=== PATIENT | female | born 1970 | race Caucasian/White ===

== ENCOUNTER → 2017-07-31 15:28 | Outpatient (CLI) | payer OTHER, SELFPAY ==
--- NOTE | 2017-07-31 | DI.CT.S_ITS ---
PROCEDURE: CT ABDOMEN PELVIS W CON INDICATIONS: CROHN'S DISEASE TECHNIQUE: After the administration of oral and intravenous contrast, 5 mm thick sections acquired from the diaphragms to the symphysis. 5 mm thick coronal and sagittal reformats were performed. For radiation dose reduction, the following was used: automated exposure control, adjustment of mA and/or kV according to patient size. COMPARISON: Outside Facility, RG, CT PELVIS WITH CONTRAST, 07/13/2016, 0:01. Outside Facility, RG, CT ABDOMEN/PELVIS WITH CONTRAST, 01/07/2016, 19:56. FINDINGS: Image quality: Excellent. ABDOMEN: Lung bases: Lung bases are clear. Heart size is normal. Solid organs: Liver is normal in size and enhancement. Gallbladder appears normal. Biliary system is non-dilated. Pancreas enhances normally. Spleen is normal in size and enhancement. No adrenal nodules. Kidneys are normal in size and enhancement, without hydronephrosis. Peritoneum and bowel: Stomach, small bowel, and colon loops are normal in caliber and wall thickness. The left colon extends inferiorly and transitions into the sigmoid colon, and this portion of the colon is relatively featureless as has been previously the case on the [address] scans from 2015 and 2016. No adjacent pericolonic edema is associated, however, and the posterior half of the sigmoid colon tracking into the rectum appears free of active inflammatory change. No free fluid or air. Nodes and vessels: No retroperitoneal or mesenteric adenopathy. Aorta and inferior vena cava are normal in caliber. Miscellaneous: No ventral hernias. PELVIS: Genitourinary: Bladder wall thickness is normal. The uterus is anteverted, a centrally positioned IUD is incidentally noted. Miscellaneous: No inguinal hernias or adenopathy. No active inflammatory change is seen related to the terminal ileum, or the other components of the large and small bowel included in the pelvic portion of the study. Bones: No suspicious bony lesions. No vertebral body compression fractures. IMPRESSION: The 3 CT scans available for review all show a relatively featureless appearance of the left colon, to approximately the junction of the proximal and middle thirds of the sigmoid colon. This appearance indicates chronic fibrotic change, consistent with long-standing Crohn's disease but without an active inflammatory component at this time. The terminal ileum and other small bowel structures included on the current study appear free of inflammation. No abscess or fistula formation is seen. Incidental note is made of a centrally positioned IUD within the anteverted uterus, previously present. Dictated by: Teddy Celis M.D. on 08/01/2017 at 10:40 Approved by: Teddy Celis M.D. on 08/01/2017 at 10:49
== END ==
PROVIDERS: Visit Provider Internal Medicine Gastroenterology
DX: K50.10 Crohn's disease of large intestine without complications (principal)
CPT/HCPCS: 74177; Q9967

== ENCOUNTER 2018-05-16 23:44 | Emergency (ER) | payer OTHER, SELFPAY ==
[2018-05-16 23:50] VITALS: BP 153/89; PULSE 90; RESP 16; TEMP 36.4; O2SAT 100; BMI 32.9
--- NOTE | 2018-05-17 | ED.EXTPRO ---
HPI - Extremity Problem General Chief complaint: Extremity Problem,Nontraumatic Stated complaint: Left shoulder RA flare up pain Time Seen by Provider: 05/16/18 23:47 Source: patient Mode of arrival: ambulatory Limitations: no limitations History of Present Illness HPI Narrative: 47-year-old female with a history of lupus, Crohn's disease rheumatoid arthritis here for evaluation of which she states is a flare of her rheumatoid arthritis her left shoulder. She states that it started earlier today and has just progressively worsened. She is off of all of her rheumatoid medicine because of the Crohn's disease medicines that she is on. She stated that she also has right wrist pain which is consistent with her rheumatoid arthritis flare. She does have pain medication at home. She stated that she is here for shot of Toradol and steroids. She states the last time this happened that is which she got from an outside facility and then followed up with her primary doctor the next day to have a shot in her left shoulder. That was less than 6 weeks ago. Related Data Previous Rx's Medication Instructions Recorded prednisone 60 mg PO DAILY #35 tab 05/17/18 Allergies Allergy/AdvReac Type Severity Reaction Status Date / Time adalimumab [From Humira] Allergy Verified 05/16/18 23:55 metoclopramide [From Reglan] Allergy Verified 05/16/18 23:55 Penicillins Allergy Verified 05/16/18 23:55 prochlorperazine Allergy Verified 05/16/18 23:55 [From Compazine] Review of Systems Constitutional Denies fever(s) Cardiovascular Denies chest pain and Denies dyspnea Respiratory Denies dyspnea Musculoskeletal Denies tingling Comments: Left shoulder pain, right wrist pain Integumentary/Breasts Denies rash Neurologic Denies tingling Hematologic/Lymphatic Comments: not on blood thinners PFSH Medical History Crohns disease (Acute) Lupus (Acute) Rheumatoid arthritis (Acute) Social History Smoking Status: Unknown if ever smoked Social History Smoking Status: Unknown if ever smoked Exam Initial Vital Signs Initial Vital Signs: Vital Signs Temperature 97.6 F 05/16/18 23:50 Pulse Rate 90 05/16/18 23:50 Respiratory Rate 16 05/16/18 23:50 Blood Pressure 153/89 H 05/16/18 23:50 Pulse Oximetry 100 05/16/18 23:50 Const General: cooperative, well developed, well groomed and No acute distress Orientation: alert, awake and oriented x3 [facility] Head: normal to inspection and normocephalic Resp Effort & Inspection: normal respiratory effort Auscultation: clear to auscultation bilaterally Cardio Rate: regular rate Rhythm: regular rhythm Pulses: radial pulses present on the left Skin Lesions: no lesions Rashes: no rashes Neuro General: alert, awake and oriented x3 Sensory Exam: no sensory deficits noted Extrem Other: patient with limited range of motion of the left shoulder secondary to pain. She was tender to palpation on the left anterior shoulder. Left elbow unremarkable. Left forearm wrist and hand unremarkable. Patient also with tenderness to palpation of the right wrist however she does have movement of this area. Course Orders Ordered: Discontinued Medications Ketorolac Tromethamine (Toradol) 60 mg IM NOW ONE Stop: 05/17/18 00:09 Last Admin: 05/17/18 00:14 Dose: 60 mg Prednisone (Deltasone) 60 mg PO NOW ONE Stop: 05/17/18 00:09 Last Admin: 05/17/18 00:14 Dose: 60 mg Vital Signs - 8 hr 05/16/18 23:50 05/17/18 00:48 Temperature 97.6 F Pulse Rate 90 74 Respiratory Rate 16 16 Blood Pressure 153/89 H Blood Pressure [Left Arm] 97/53 L Pulse Oximetry 100 98 MDM - Extremity (Nontraumatic) MDM Narrative Medical decision making narrative: Patient is afebrile. No trauma so will hold on x-rays for now. Patient states this feels like her flare of rheumatoid arthritis. She was given Toradol and prednisone here in the ER. She asked me to do a steroid injection in her left shoulder however since it has been less than 6 weeks since last steroid injection I informed her that I was uncomfortable doing this. Will send her home with a steroid taper. She has an appointment with her director utilization management next week. She is given return precautions. Patient expressed understanding and agreement with plan. Discharge Plan Departure Patient Disposition: Home Clinical Impression: Rheumatoid arthritis flare Left shoulder pain Qualifiers: Chronicity: acute Qualified Code(s): M25.512 - Pain in left shoulder Instructions: DI for Rheumatoid Arthritis Activity Restrictions/Additional Instructions: you have no restrictions except avoiding activity that makes Your symptoms worse. Take the medication as directed. Contact your primary care doctor for a follow-up. keep all of her scheduled medical appointments. Prescriptions: New prednisone 20 mg tablet 60 mg PO DAILY Qty: 35 RF: 0
[2018-05-17] MEDS: predniSONE 20 MG TABLET 60 MG PO (00:14)
[2018-05-17] MEDS: KETOROLAC 60 MG/2 ML VIAL IM (00:14)
[2018-05-17 00:48] VITALS: BP 97/53; PULSE 74; RESP 16; O2SAT 98
[2018-05-17 01:12] VITALS: BP 107/64; PULSE 72; O2SAT 95
== END 2018-05-17 01:13 | disposition home or self-care (01) ==
PROVIDERS: Emergency Provider Emergency Medicine
DX: M06.9 Rheumatoid arthritis, unspecified (principal); M25.512 Pain in left shoulder
CPT/HCPCS: 96372; 99282; 99283; J1885

== ENCOUNTER → 2021-02-18 12:49 | Outpatient (CLI) | payer SELFPAY | PROVIDERS: Referring Provider Internal Medicine; Visit Provider Internal Medicine | DX: Z23 Encounter for immunization (principal) | CPT/HCPCS: 90471; 90686 ==

== ENCOUNTER → 2021-04-13 12:50 | Outpatient (CLI) | payer OTHER, SELFPAY ==
[2021-04-14 04:36] LABS: Hepatitis B Surf AB Quant 56.5 mIU/mL (Immunity>9.9)
[2021-04-15 07:32] LABS: QuantiFERON Mitogen Value >10.00 IU/mL (.); QuantiFERON Nil Value 0.04 IU/mL (.); QuantiFERON TB Gold Plus Negative (Negative); QuantiFERON TB1 Ag Value 0.04 IU/mL (.); QuantiFERON TB2 Ag Value 0.04 IU/mL (.)
== END ==
PROVIDERS: PCP Family Medicine; Referring Provider Internal Medicine Gastroenterology; Visit Provider Internal Medicine Gastroenterology
DX: K50.813 Crohn's disease of both small and large intestine with fistula (principal)
CPT/HCPCS: 36415; 86480; 86706

== ENCOUNTER → 2021-04-14 07:49 | Outpatient (CLI) | payer OTHER, SELFPAY ==
[2021-04-16 18:36] LABS: Calprotectin, Stool 727 ug/g (0-120)
== END ==
PROVIDERS: PCP Family Medicine; Referring Provider Internal Medicine Gastroenterology; Visit Provider Internal Medicine Gastroenterology
DX: K50.813 Crohn's disease of both small and large intestine with fistula (principal)
CPT/HCPCS: 83993

== ENCOUNTER → 2021-04-27 07:19 | Outpatient (CLI) | payer OTHER, SELFPAY ==
[2021-04-27 08:28] LABS: Add Manual Diff / Slide Review NO; Basophils Absolute Auto 100 /uL (0-100); Basophils Percent Auto 0.9 % (0-2); Eosinophils Absolute Auto 300 /uL (0-450); Eosinophils Percent Auto 3.5 % (2-4); Hematocrit 41.8 % (36-46); Hemoglobin 14.2 g/dL (12.0-16.0); Lymphocytes Absolute Auto 3900 /uL (1100-4500); Mean Corpuscular HGB Conc 33.9 % (30-36); Mean Corpuscular Hemoglobin 29.8 PG (26-34); Mean Corpuscular Volume 87.8 fL (80-100); Monocytes Absolute Auto 1200 /uL (0-900); Monocytes Percent Auto 12.6 % (3-14); Neutrophils Absolute Auto 4300 /uL (1500-7000); Platelet Count 379 X10^3/uL (150-400); Red Blood Cell Count 4.76 X10^6/uL (4.0-5.2); Red Cell Distribution Width 14.2 % (11.6-14.8); White Blood Cell Count 9.9 X10^3/uL (4.5-11.0)
[2021-04-27 08:47] LABS: C-Reactive Protein Quant 0.6 mg/dL (<1.0); Cholesterol 247 mg/dL (140-199); HDL Cholesterol 49 mg/dL (40-60); LDL Cholesterol Calculated 167 mg/dL (<100); Triglycerides 154 mg/dL (35-150)
[2021-04-27 09:02] LABS: Erythrocyte Sedimentation Rate 14 MM/HR (0-20)
[2021-04-27 09:22] LABS: TSH w/ Reflex to FT4 3.16 uIU/mL (0.47-4.68)
[2021-04-29 17:08] LABS: ANA Screen, IFA Positive (.)
[2021-05-01 10:08] LABS: Hepatitis B Virus HBV DNA not detected IU/mL (.)
== END ==
PROVIDERS: PCP Family Medicine; Referring Provider Internal Medicine Gastroenterology; Visit Provider Internal Medicine Gastroenterology
DX: K50.813 Crohn's disease of both small and large intestine with fistula (principal); F32.9 Major depressive disorder, single episode, unspecified; E78.5 Hyperlipidemia, unspecified; Z79.891 Long term (current) use of opiate analgesic; K50.90 Crohn's disease, unspecified, without complications; M06.9 Rheumatoid arthritis, unspecified; L93.0 Discoid lupus erythematosus
CPT/HCPCS: 36415; 80061; 84443; 85025; 85651; 86038; 86140

== ENCOUNTER → 2021-05-18 12:49 | Outpatient (CLI) | payer OTHER, SELFPAY ==
--- NOTE | 2021-05-18 12:51 | DI.RAD.S_ITS ---
PROCEDURE: XR SHOULDER LT MIN 2V INDICATIONS: LEFT SHOULDER PAIN TECHNIQUE: 3 views of the shoulder were acquired. COMPARISON: None. FINDINGS: Bones: No fractures or dislocations. No suspicious bony lesions. Visualized ribs appear intact. Acromioclavicular joint marginal osteophytes noted. Soft tissues: No suspicious soft tissue calcifications. IMPRESSION: Degenerative changes without fracture or dislocation. Approved by: Andre Merchant M.D. on 05/18/2021 at 12:35
== END ==
PROVIDERS: PCP Family Medicine; Referring Provider Physical Medicine & Rehabilitation; Visit Provider Physical Medicine & Rehabilitation
DX: M19.012 Primary osteoarthritis, left shoulder (principal); M05.9 Rheumatoid arthritis with rheumatoid factor, unspecified; M25.512 Pain in left shoulder; K50.919 Crohn's disease, unspecified, with unspecified complications
CPT/HCPCS: 20606; 73030; J1040

== ENCOUNTER 2021-06-22 11:18 | Emergency (ER) | payer OTHER, SELFPAY ==
[2021-06-22 11:32] VITALS: BP 180/102; PULSE 88; RESP 15; TEMP 36; O2SAT 97; BMI 39.4
--- NOTE | 2021-06-22 11:37 | DI.US.S_ITS ---
PROCEDURE: US PERIPH VENOUS LOW EXTREM LT INDICATIONS: left calf/behind the knee pain TECHNIQUE: Real-time imaging, as well as color and pulse Doppler interrogation, were performed of the lower extremity deep veins from the inguinal ligament to the popliteal fossa. COMPARISON: None. FINDINGS: The common femoral, femoral and popliteal veins are normally compressible, and free of intraluminal thrombus. Color and pulse Doppler demonstrate normal phasic intraluminal flow. There is normal augmentation response to distal compression maneuver. A Isaac cyst is noted measuring 4.5 x 1.3 x 1.5 cm. IMPRESSION: No DVT in the left lower extremity. Dictated by: Robby Torres M.D. on 06/22/2021 at 12:31 Approved by: Robby Torres M.D. on 06/22/2021 at 12:32
--- NOTE | 2021-06-22 14:40 | ED_ITS ---
HPI - Extremity Problem <SHAJI Cortes - Last Filed: 06/22/21 15:33> General Chief complaint: Extremity Problem,Nontraumatic Stated complaint: Swollen left knee/calf- no injury Time Seen by Provider: 06/22/21 14:40 Source: patient Mode of arrival: Ambulatory History of Present Illness HPI Narrative: This is a 50-year-old female with history of lupus, Crohn's, rheumatoid arthritis on still air a, prednisone, and states she had COVID 2 months ago who complains of worsening posterior left knee pain over the last 1-2 weeks. She states that she has been in a flare since the weather changed, and she had been taking 5 mg a day of prednisone after she titrated down after COVID from 40 mg per day. She states she just had her still area infusion couple days ago, last colonoscopy was last week, and it was great, she takes ibuprofen as needed for pain in addition to her hydrocodone and this has been working for her. Patient states that she works at [employer] office, and left the office today for this posterior left knee pain which is tender to touch, swollen, without rash or recent illness. She denies any fever, denies any headache, weakness, alteration in her gait. She does endorse left calf pain and tenderness to her left calf with left lower extremity swelling which has been new. Patient states that her calf is tender when she ambulates. Related Data Home Medications Medication Instructions Recorded Confirmed hydrocodone 5 mg-acetaminophen 325 1 tab PO BID PRN 05/18/21 06/22/21 mg tablet prednisone 5 mg tablet 5 mg PO DAILY 05/18/21 06/22/21 trazodone 50 mg tablet 50 mg PO DAILY 05/18/21 06/22/21 ustekinumab 90 mg/mL subcutaneous 90 mg SUBCUT Q4W 05/18/21 06/22/21 syringe (Stelara) Allergies Allergy/AdvReac Type Severity Reaction Status Date / Time adalimumab [From Humira] Allergy Verified 06/22/21 16:35 metoclopramide [From Reglan] Allergy Verified 06/22/21 16:35 Penicillins Allergy Verified 06/22/21 16:35 prochlorperazine Allergy Verified 06/22/21 16:35 [From Compazine] Review of Systems <SHAJI Cortes - Last Filed: 06/22/21 15:33> Review of Systems Narrative: General: denies fever, chills Head/Neck: denies headache, neck pain Eyes: denies visual changes, eye pain Cardio: denies chest pain, palpitations Respiratory: denies shortness of breath, cough GI: denies abdominal pain, nausea, vomiting, or diarrhea : denies dysuria, hematuria MSK: denies joint pain, muscle weakness, endorses posterior left knee pain and swelling Skin: denies rash, itching Neuro: denies numbness, tingling Patient History <SHAJI Cortes - Last Filed: 06/22/21 15:33> Medical History Crohns disease 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 General: Awake, alert, nontoxic, no cardiorespiratory distress, elevated BMI Head/Neck: Atraumatic, neck full range of motion Eyes: EOMI, conjunctiva normal Nose: nares patent, no rhinorrhea Mouth/Throat: moist mucus membranes, no oral lesions Cardio: Regular rate and rhythm, no peripheral edema Respiratory: respirations unlabored without wheezing, stridor, or rales. No retractions. GI: Abdomen soft, nontender MSK: Moves all extremities, neurovascularly intact, left knee without any anterior erythema, edema discoloration, posterior of left knee is edematous, tender to palpation, mild edema distal to her left knee visible in the anterior of her left foot, PT and DP pulses in her left foot are 2+, cap refill less than 2 seconds, no discoloration to her left leg distal to her left knee swelling, no fluctuance, surrounding erythema, streaking, calf is tender to palpation however remains soft to palpation Skin: Normal capillary refill, no rash Neuro: Normal speech and cognition, normal gait Initial Vital Signs Initial Vital Signs: Vital Signs Temperature 96.8 F L 06/22/21 11:32 Pulse Rate 88 06/22/21 11:32 Respiratory Rate 15 06/22/21 11:32 Blood Pressure 180/102 H 06/22/21 11:32 Pulse Oximetry 97 06/22/21 11:32 <Gail Reed DO - Last Filed: 06/25/21 23:25> Initial Vital Signs Initial Vital Signs: Vital Signs Temperature 96.8 F L 06/22/21 11:32 Pulse Rate 88 06/22/21 11:32 Respiratory Rate 15 06/22/21 11:32 Blood Pressure 180/102 H 06/22/21 11:32 Pulse Oximetry 97 06/22/21 11:32 Course <SHAJI Cortes - Last Filed: 06/22/21 15:33> Orders Ordered: Discontinued Medications Ketorolac Tromethamine (Ketorolac 30 Mg/Ml Vial) 15 mg IM NOW ONE Stop: 06/22/21 14:55 Last Admin: 06/22/21 15:18 Dose: 15 mg Documented by: BTONER Consultations Consultation #1: Consult with Dr. 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 Discussion with him, and he and I agreed to consult Orthopedics 1st, discuss what his preference in treatment would be, and then he would be willing to do a steroid injection for her today if that was recommended otherwise she will follow up accordingly to Dr. Lopez plans. Consultation #2: Consult with Dr. Lopez: Dr. Lopez states that he will not exercise the Isaac cyst, he states he will not see this patient due to her rheumatologic condition and concurrent inflammatory conditions. Patient will follow-up with her truck shop supervisor, and go to Dr. Freeman's office for a steroid injection of her left posterior knee. Vital Signs Vital signs: Vital Signs - 8 hr 06/22/21 11:32 Temperature 96.8 F L Pulse Rate 88 Respiratory Rate 15 Blood Pressure 180/102 H Pulse Oximetry 97 <Gail Reed DO - Last Filed: 06/25/21 23:25> Orders Ordered: Discontinued Medications Ketorolac Tromethamine (Ketorolac 30 Mg/Ml Vial) 15 mg IM NOW ONE Stop: 06/22/21 14:55 Last Admin: 06/22/21 15:18 Dose: 15 mg Documented by: LEOLAONER Vital Signs Vital signs: Vital Signs - 8 hr 06/22/21 11:32 Temperature 96.8 F L Pulse Rate 88 Respiratory Rate 15 Blood Pressure 180/102 H Pulse Oximetry 97 MDM - Extremity (Nontraumatic) <SHAJI Cortes - Last Filed: 06/22/21 15:33> Imaging Data US - DVT: Radiologist's Impression: PROCEDURE:? US PERIPH VENOUS LOW EXTREM LT ? INDICATIONS:? left calf/behind the knee pain ? TECHNIQUE:? Real-time imaging, as well as color and pulse Doppler interrogation, were performed of the lower extremity deep veins from the inguinal ligament to the popliteal fossa.? ? COMPARISON:? None. ? FINDINGS:? The common femoral, femoral and popliteal veins are normally compressible, and free of intraluminal thrombus.? Color and pulse Doppler demonstrate normal phasic intraluminal flow.? There is normal augmentation response to distal compression maneuver. ?A Isaac cyst is noted measuring 4.5 x 1.3 x 1.5 cm. ? IMPRESSION:? No DVT in the left lower extremity. ? ? Dictated by: Robby Torres M.D. on 06/22/2021 at 12:31 ? ? Approved by: Robby Torres M.D. on 06/22/2021 at 12:32 ? [facility] Narrative Medical decision making narrative: This is a 50-year-old female with history of Crohn's, rheumatoid arthritis, degenerative joint disease, and lupus on Stelara, currently on 10 mg daily of prednisone since her COVID infection 2 months ago who presents to the emergency department with left posterior your knee pain, tenderness, swelling. Patient has a positive Homans sign, calf tenderness with ambulation, no weakness, no fluctuance, surrounding erythema, or stay signs of an infection. Patient states that she is in a current flare, she was taking 40 mg of prednisone daily and has titrated down to 5 mg daily but states due to this left knee pain since the weather changed a couple days ago she increased up to 10 mg for a few days. She states that her truck shop supervisor is Dr. Hollis but she states this been 2 years since she has seen him. Her Stelara as prescribed by her construction or leak gang laborer for her Crohn's, her last colonoscopy was last week, she states that it was good without any lesions. She is seeking a truck shop supervisor which is closer to home, she was referred to Dr. Urbina. Ultrasound of her left lower extremity shows a Isaac's cyst measuring 4.5 x 1.3 x 1.5 cm. There is no intraluminal thrombus, common femoral, popliteal veins are normally compressible. Consult with Dr. 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 Consult with Dr. Lopez from Orthopedics, he states that due to her concurrent inflammatory conditions, he would not excise nor drain this isaac cyst, he recommended she go to her truck shop supervisor for a steroid injection. Dr. Lopez said that patient may benefit from a steroid injection, less likely to benefit from any drainage or excision of Isaac cyst. He said that she does not need a referral to Orthopedics nor does orthopedics manage these. Patient was referred back to Dr. Freeman, he states he may be able to see her today. Patient is appropriate and amenable to discharge home. Vital signs are stable on repeat examination is unremarkable. Patient has been informed of results. Patient has been given strict return to ER precautions for any new or worsening symptoms. Patient understands to follow up closely with outpatient providers as instru cted. Patient understands plan and agrees to discharge home. All questions and concerns answered at this time. Discharge Plan Departure Patient Disposition: Home Clinical Impression: Crohns disease Isaac cyst Qualifiers: Laterality: left Qualified Code(s): M71.22 - Synovial cyst of popliteal space [Isaac], left knee Rheumatoid arthritis Qualifiers: Rheumatoid arthritis location: unspecified site Rheumatoid factor presence: unspecified presence Qualified Code(s): M06.9 - Rheumatoid arthritis, unspecified Instructions: Isaac Cyst Activity Restrictions/Additional Instructions: *You have been diagnosed with a Isaac cyst measuring 4.5 x 1.3 x 1.5 cm. Please follow-up with Dr. Freeman so for a steroid injection this area. Thank you for being patient, trusting us with your care, I am sorry for your left calf pain. On your ultrasound does not show any impedance of blood flow at this time. Please call Dr. Urbina office and make an appointment as a new patient. Please return to the emergency department for anything that we may be able to help you with. *What to do: *Please continue to take your regular medications as directed. [ x] New medication prescriptions sent to your pharmacy: [ ] [ ] New medication written as a paper prescription [ ] No new medications given *Please follow up with your primary care provider in 2-3 days, call for an appointment. Let them know you were seen in the Emergency Department and that we asked that you be seen for follow-up. We will electronically transmit a record of today's note if your PCP is in our system *If you do not have a primary care provider please contact [phone] to establish care with one of the [facility] primary care providers. *Return to Emergency Department if you should have any new, worsening or concerning symptoms, such as [fever greater than 101F, chills, worsening pain, persistent vomiting or other bothersome symptoms] Prescriptions: No Action prednisone 5 mg tablet 5 mg PO DAILY 0RF trazodone 50 mg tablet 50 mg PO DAILY 0RF hydrocodone-acetaminophen 5-325 mg tablet 1 tab PO BID [id number] Stelara 90 mg/mL syringe 90 mg SUBCUT Q4W 0RF Referrals: Adis Freeman DO [Physician] - Mike Linton MD [Primary Care Provider] - Navdeep Urbina MD [Non-Staff] - <Gail Reed DO - Last Filed: 06/25/21 23:25> Cosign ED Attending Cosignature Attestation: I was immediately available in the department for consultation. Documentation has been reviewed.
[2021-06-22] MEDS: KETOROLAC 30 MG/ML VIAL 15 MG IM (15:18)
[2021-06-22 15:40] VITALS: BP 161/95; PULSE 97; RESP 18; O2SAT 98
== END 2021-06-22 15:45 | disposition home or self-care (01) ==
PROVIDERS: Emergency Provider Nurse Practitioner Critical Care Medicine; PCP Family Medicine
DX: M71.22 Synovial cyst of popliteal space [Baker], left knee (principal); M17.12 Unilateral primary osteoarthritis, left knee; M06.9 Rheumatoid arthritis, unspecified
CPT/HCPCS: 20611; 93971; 96372; 99214; 99283; J1030; J1885

== ENCOUNTER → 2021-08-11 16:21 | Outpatient (CLI) | payer OTHER, SELFPAY ==
--- NOTE | 2021-08-11 16:23 | DI.RAD.S_ITS ---
PROCEDURE: XR KUB INDICATIONS: Kidney stones TECHNIQUE: One view of the abdomen acquired. COMPARISON: None. FINDINGS: Surgical changes and devices: Intrauterine device projected over the mid pelvis. Bowel: Bowel gas pattern is normal. Soft tissues: No suspicious abdominal calcifications. Visualized solid organ contours appear normal in size. 6 mm right hemipelvic calcification. Bones: No suspicious bony lesions. IMPRESSION: 1. 6 mm right hemipelvic calcification which may represent a phlebolith; however distal right ureteral stone cannot entirely be excluded and clinical correlation is recommended. If indicated, CT KUB could be performed. Dictated by: Marvin Arnett [facility] Interpreted: Barry Fuentes MD on 08/11/2021 at 16:47 Transcribed by: DWIGHT on 08/11/2021 at 16:48 Approved by: Barry Fuentes M.D. on 08/11/2021 at 17:33
== END ==
PROVIDERS: PCP Family Medicine; Referring Provider Specialist; Visit Provider Specialist
DX: N20.1 Calculus of ureter (principal)
CPT/HCPCS: 74018

== ENCOUNTER → 2021-08-12 12:08 | Outpatient (CLI) | payer OTHER, SELFPAY ==
--- NOTE | 2021-08-12 12:10 | DI.CT.S_ITS ---
PROCEDURE: CT KIDNEY URETER BLADDER (KUB) INDICATIONS: Kidney stone TECHNIQUE: Axial sections were acquired from the lung bases to the pubic symphysis. Coronal and sagittal reformats were performed. For radiation dose reduction, the following was used: automated exposure control, adjustment of mA and/or kV according to patient size. COMPARISON: [facility], CT, CT ABDOMEN PELVIS W CON, 07/31/2017, 16:21. FINDINGS: Image quality: Excellent. Lung bases: Unremarkable. Heart: No significant findings. URINARY: Right Kidney: No stones or hydronephrosis. Right Ureter: No hydroureter. Left Kidney: No stones or hydronephrosis. Left Ureter: No hydroureter. Bladder: Normal wall thickness. No stones. ABDOMEN: Liver: Unremarkable. Gallbladder: Unremarkable. Biliary ducts: Unremarkable. Pancreas: Unremarkable. Spleen: Unremarkable. Adrenal Glands: Unremarkable. Stomach and Bowel: Stomach, small bowel loops, and colon are unremarkable. The appendix is thin walled. Peritoneum: No abnormal intraperitoneal fluid. No free air. Ventral Wall: No hernia. Abdominal Nodes: No enlarged retroperitoneal or mesenteric lymph nodes. There is mild fat stranding of the mesenteric root which was visualized on the comparison CT dated July 31, 2017. Vessels: Aorta and inferior vena cava are normal in size. PELVIS: Pelvic Organs: An IUD is present at midline and appears to be slightly inferiorly displaced within the lower uterine segment and cervix. displaced Pelvic Nodes: Unremarkable. Miscellaneous: No inguinal hernias are seen. Bones: Unremarkable. IMPRESSION: 1. No hydronephrosis, nephrolithiasis, hydroureter, or ureterolithiasis. 2. Questionable inferior displacement of the IUD which appears to be located in the lower uterine segment and the cervix as opposed to the uterine fundus. Pelvic ultrasound could be used to further characterize this finding if clinically indicated. 3. No acute intra-abdominal findings. Normal appendix. 4. Stable haziness at the mesenteric root when compared with the 2018 study. This is a nonspecific finding but can be associated with mesenteric panniculitis. Dictated by: Sarahi Lambert M.D. on 08/12/2021 at 15:23 Approved by: Sarahi Lambert M.D. on 08/12/2021 at 15:28
== END ==
PROVIDERS: PCP Family Medicine; Referring Provider Specialist; Visit Provider Specialist
DX: N20.0 Calculus of kidney (principal)
CPT/HCPCS: 74176

== ENCOUNTER → 2021-08-17 09:03 | Outpatient (CLI) | payer OTHER, SELFPAY ==
[2021-08-17 10:13] LABS: COVID19 -Nasal RAPID Negative (Negative)
== END ==
PROVIDERS: PCP Family Medicine; Visit Provider Surgery
DX: Z01.812 Encounter for preprocedural laboratory examination (principal); Z20.822 Contact with and (suspected) exposure to COVID-19
CPT/HCPCS: 87635

== ENCOUNTER 2021-08-17 14:07 | Day surgery (SDC) | payer OTHER, SELFPAY ==
[2021-08-17 14:16] VITALS: BP 141/92; PULSE 88; RESP 18; TEMP 36.5; O2SAT 99; BMI 40.7
[2021-08-17] MEDS: LACTATED RINGERS 1,000 ML 200 ML IV (14:38)
--- NOTE | 2021-08-17 15:29 | PM.HP.1 ---
History of Present Illness History of Present Illness Date Patient Seen: 08/17/21 Time Patient Seen: 15:29 Chief complaint: EGD Narrative: 50-year-old woman history of Crohn's disease and rheumatoid arthritis he is here for a preoperative EGD. She has proceeding with a workup for a gastric sleeve and needs a upper endoscopy as part of her workup. She has mild reflux which is well controlled with jkxe-muk-upgrnjk medication. She has a history of Crohn's disease primarily of her distal colon of perhaps some mild inflammation of the terminal ileum on her most recent colonoscopy but she has never had significant small bowel or upper intestinal disease. No previous intestinal resection. Takes 5 mg of prednisone daily and Ustekinumab infusion Q4wk for Crohns. 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 Lupus Rheumatoid arthritis Family & Social History Family History Father No pertinent family history Social History: household members significant other Tobacco & Substance use: Smoking Status Never smoker alcohol intake current alcohol intake frequency holiday/special occasion Substance Use Type does not use Meds Home Medications and Allergies Home Medications Medication Instructions Recorded Confirmed Type hydrocodone 5 mg-acetaminophen 325 1 tab PO BID PRN 05/18/21 08/17/21 History mg tablet prednisone 5 mg tablet 5 mg PO DAILY 05/18/21 08/17/21 History trazodone 50 mg tablet 50 mg PO DAILY 05/18/21 08/17/21 History ustekinumab 90 mg/mL subcutaneous 90 mg SUBCUT Q4W 05/18/21 08/17/21 History syringe (Stelara) Allergies Allergy/AdvReac Type Severity Reaction Status Date / Time adalimumab [From Humira] Allergy Verified 07/09/21 10:36 metoclopramide [From Reglan] Allergy Verified 07/09/21 10:36 Penicillins Allergy Verified 07/09/21 10:36 prochlorperazine Allergy Verified 07/09/21 10:36 [From Compazine] Exam Vital Signs (past 8 hours): - 08/17/21 14:16 Temperature 97.7 F Pulse Rate 88 Respiratory Rate 18 Blood Pressure 141/92 H Pulse Oximetry 99 Oxygen Delivery Method Room Air Narrative Exam Narrative: General adult woman alert oriented no acute distress Chest nonlabored respirations Abdomen soft nontender nondistended Extremities warm perfused Assessment & Plan Assessment and plan (1) GERD (gastroesophageal reflux disease): Status: Acute Assessment & Plan narrative: 50-year-old woman history of Crohn's disease, rheumatoid arthritis and GERD, needs preoperative EGD prior to sleeve gastrectomy. Technical details of the procedure were discussed with the patient. Operative risks including bleeding, intestinal perforation anesthetic complication were discussed. Her questions have been answered she is in agreement with this plan. Time Spent With Patient Critical Care time: I spent a total of [] minutes of critical care time on this patient's care today; this time is exclusive of procedural time.
[2021-08-17] MEDS: LIDOCAINE 4% SOLN 50 ML 20 ML TOP (15:40)
[2021-08-17] MEDS: MIDAZOLAM 5 MG/5 ML VIAL 11 MG IV (15:49)
[2021-08-17] MEDS: fentaNYL 250 MCG/5 ML INJ 100 MCG IV (15:49)
--- NOTE | 2021-08-17 15:52 | PM.OP.EGD ---
Operative Date/Time/Diagnoses Date of procedure: 08/17/21 Time of procedure: 15:52 Pre-op diagnosis: Crohn's, GERD, Post-op diagnosis: same Procedure & Clinicians Study performed: Esophagoduodenoscopy Same procedure as scheduled: Yes Indications: History of Crohn's, GERD, here for preoperative upper endoscopy evaluation prior to sleeve gastrectomy Surgeon: Ted Washington Procedure Notes Procedure in detail: Patient placed in left lateral decubitus position. Time out was performed. Procedural sedation was administered with Versed and Fentanyl. A bite block was placed. the scope was inserted into the mouth and advanced through the esophagus and into the stomach. The pylorus was intubated and the duodenum was normal to the 2nd portion. The scope was retroflexed within the stomach and there was a small hiatal hernia. No ulcers, or gastritis or evidence of active Crohn's disease. The Scope was withdrawn into the esophagus the Z line was seen at 34 cm from the incisions. There was no Bangura's esophagitis or masses or strictures. Stomach was desufflated and scope removed. Patient tolerated procedure well. Specimen(s): none sent Complications: none Impression: Normal esophagoduodenoscopy with the exception of hiatal hernia. Post-procedure Recommendations: Reflux diet Disposition: same day surgery
[2021-08-17 16:00] VITALS: BP 115/64; PULSE 91; RESP 18; TEMP 37.1; O2SAT 93
[2021-08-17 16:07] VITALS: BP 114/60; PULSE 81; RESP 15; O2SAT 92
[2021-08-17 16:12] VITALS: BP 111/70; PULSE 90; RESP 14; TEMP 36.1; O2SAT 92
[2021-08-17 16:22] VITALS: BP 110/64; PULSE 81; RESP 16; TEMP 36.8; O2SAT 97
== END 2021-08-17 16:24 | disposition home or self-care (01) ==
PROVIDERS: PCP Family Medicine; Referring Provider Surgery; Visit Provider Surgery
PROC: 0DJ08ZZ Inspection of Upper Intestinal Tract, Via Natural or Artificial Opening Endoscopic (ICD-10-PCS; CPT 43235; principal; 2021-08-17 15:15)
DX: Z01.818 Encounter for other preprocedural examination (principal); K21.9 Gastro-esophageal reflux disease without esophagitis; K50.90 Crohn's disease, unspecified, without complications; M06.9 Rheumatoid arthritis, unspecified; Z20.822 Contact with and (suspected) exposure to COVID-19; K44.9 Diaphragmatic hernia without obstruction or gangrene
CPT/HCPCS: 43235; 87635; C9803; J2250; J3010

== ENCOUNTER → 2021-09-17 08:03 | Outpatient (CLI) | payer OTHER, SELFPAY ==
[2021-09-17 09:41] LABS: Add Manual Diff / Slide Review NO; Basophils Absolute Auto 100 /uL (0-100); Basophils Percent Auto 0.9 % (0-2); Eosinophils Absolute Auto 200 /uL (0-450); Eosinophils Percent Auto 2.6 % (2-4); Hematocrit 41.4 % (36-46); Hemoglobin 14.5 g/dL (12.0-16.0); Lymphocytes Absolute Auto 2900 /uL (1100-4500); Lymphocytes Percent Auto 37.6 % (25-40); Mean Corpuscular Hemoglobin 30.4 PG (26-34); Mean Corpuscular Volume 86.7 fL (80-100); Monocytes Absolute Auto 500 /uL (0-900); Monocytes Percent Auto 6.3 % (3-14); Neutrophils Absolute Auto 4100 /uL (1500-7000); Neutrophils Percent Auto 52.6 % (50-75); Platelet Count 394 X10^3/uL (150-400); Red Blood Cell Count 4.77 X10^6/uL (4.0-5.2); Red Cell Distribution Width 14.1 % (11.6-14.8); White Blood Cell Count 7.7 X10^3/uL (4.5-11.0)
[2021-09-17 09:48] LABS: Hemoglobin A1C% w Est Avg Glu 5.5 % (4.0-6.0)
[2021-09-17 09:50] LABS: Alanine Aminotransferase 21 IU/L (<35); Albumin 4.3 g/dL (3.5-5.0); Albumin Globulin Ratio 1.3 (1.0-2.8); Alkaline Phosphatase 76 U/L (38-126); Aspartate Aminotransferase 23 IU/L (14-36); BUN Creatinine Ratio 24.7 (6-22); Bilirubin Total 0.8 mg/dL (0.2-1.3); Blood Urea Nitrogen 20 mg/dL (7-17); Calcium 9.4 mg/dL (8.4-10.2); Carbon Dioxide 25 mmol/L (22-32); Chloride 103 mmol/L (98-107); Cholesterol 229 mg/dL (140-199); Estimated Glomerular Filt Rate > 60 mL/min (>60); Globulin 3.3 g/dL (1.7-4.1); Glucose 94 mg/dL (70-100); HDL Cholesterol 43 mg/dL (40-60); HEMOLYSIS < 15 (0-50); LDL Cholesterol Calculated 158 mg/dL (<100); Potassium 4.5 mmol/L (3.4-5.1); Sodium 139 mmol/L (137-145); Total Protein 7.6 g/dL (6.3-8.2); Triglycerides 139 mg/dL (35-150)
[2021-09-17 10:19] LABS: TSH w/ Reflex to FT4 0.97 uIU/mL (0.47-4.68)
== END ==
PROVIDERS: PCP Family Medicine; Referring Provider Family Medicine; Visit Provider Family Medicine
DX: G89.29 Other chronic pain (principal); E66.01 Morbid (severe) obesity due to excess calories; Z79.891 Long term (current) use of opiate analgesic; K50.90 Crohn's disease, unspecified, without complications; L93.0 Discoid lupus erythematosus
CPT/HCPCS: 36415; 80053; 80061; 83036; 84443; 85025

== ENCOUNTER → 2021-10-26 07:33 | Outpatient (CLI) | payer OTHER, SELFPAY ==
[2021-10-27 15:36] LABS: Interpretation Negative (Negative)
== END ==
PROVIDERS: PCP Family Medicine; Referring Provider Nurse Practitioner Family; Visit Provider Nurse Practitioner Family
DX: E66.01 Morbid (severe) obesity due to excess calories (principal); Z68.41 Body mass index [BMI] 40.0-44.9, adult
CPT/HCPCS: 83013

== ENCOUNTER → 2021-10-29 07:20 | Outpatient (CLI) | payer OTHER, SELFPAY | PROVIDERS: PCP Family Medicine; Referring Provider Nurse Practitioner Family; Visit Provider Nurse Practitioner Family | DX: E83.19 Other disorders of iron metabolism (principal); Z83.49 Family history of other endocrine, nutritional and metabolic diseases | CPT/HCPCS: 36415; 81256 ==

== ENCOUNTER → 2021-12-27 08:50 | Outpatient (CLI) | payer OTHER, SELFPAY ==
[2021-12-27 09:22] LABS: COVID19 -Nasal RAPID Negative (Negative)
== END ==
PROVIDERS: PCP Family Medicine; Visit Provider Surgery
DX: Z20.822 Contact with and (suspected) exposure to COVID-19 (principal); Z01.812 Encounter for preprocedural laboratory examination
CPT/HCPCS: 87635

== ENCOUNTER 2022-03-02 19:08 | Emergency (ER) | payer OTHER, SELFPAY ==
[2022-03-02 19:14] VITALS: BP 157/102; PULSE 98; RESP 18; TEMP 36.7; O2SAT 98; BMI 35.4
[2022-03-02] MEDS: SODIUM CHLORIDE 0.9% 1,000 ML 1000 ML IV (19:46)
[2022-03-02 19:48] LABS: Add Manual Diff / Slide Review NO; Basophils Absolute Auto 100 /uL (0-100); Basophils Percent Auto 0.8 % (0-2); Eosinophils Absolute Auto 200 /uL (0-450); Hematocrit 44.5 % (36-46); Hemoglobin 14.7 g/dL (12.0-16.0); Lymphocytes Absolute Auto 4400 /uL (1100-4500); Lymphocytes Percent Auto 38.2 % (25-40); Mean Corpuscular Hemoglobin 31.9 PG (26-34); Mean Corpuscular Volume 96.6 fL (80-100); Monocytes Absolute Auto 1300 /uL (0-900); Monocytes Percent Auto 11.5 % (3-14); Neutrophils Absolute Auto 5500 /uL (1500-7000); Neutrophils Percent Auto 47.5 % (50-75); Platelet Count 343 X10^3/uL (150-400); Red Blood Cell Count 4.61 X10^6/uL (4.0-5.2); Red Cell Distribution Width 15.1 % (11.6-14.8); White Blood Cell Count 11.6 X10^3/uL (4.5-11.0)
[2022-03-02 20:22] LABS: Lactate (Lactic Acid) 0.8 mmol/L (0.7-2.1)
[2022-03-02 20:24] LABS: Alanine Aminotransferase 26 IU/L (<35); Albumin Globulin Ratio 1.2 (1.0-2.8); Alkaline Phosphatase 68 U/L (38-126); Aspartate Aminotransferase 25 IU/L (14-36); BUN Creatinine Ratio 31.5 (6-22); Bilirubin Total 0.3 mg/dL (0.2-1.3); Blood Urea Nitrogen 23 mg/dL (7-17); Calcium 8.8 mg/dL (8.4-10.2); Carbon Dioxide 25 mmol/L (22-32); Chloride 105 mmol/L (98-107); Estimated Glomerular Filt Rate > 60 mL/min (>60); Globulin 3.3 g/dL (1.7-4.1); Glucose 90 mg/dL (70-100); HEMOLYSIS < 15 (0-50); Lipase 97 U/L (23-300); Potassium 3.5 mmol/L (3.4-5.1); Sodium 140 mmol/L (137-145); Total Protein 7.3 g/dL (6.3-8.2)
--- NOTE | 2022-03-02 20:55 | DI.CT.S_ITS ---
PROCEDURE: CT ABDOMEN PELVIS W CON INDICATIONS: rlq pain TECHNIQUE: After the administration of IV contrast, axial sections were acquired from the lung bases to the pubic symphysis. Coronal and sagittal reformats were performed. For radiation dose reduction, the following was used: automated exposure control, adjustment of mA and/or kV according to patient size. COMPARISON: [facility], CT, CT ABDOMEN PELVIS W CON, 07/31/2017, 16:21. FINDINGS: Image quality: Excellent. Lung bases: Unremarkable. Heart: Heart is normal in size. There is a small pericardial effusion. ABDOMEN: Liver: No mass lesion. Gallbladder: Within normal limits without calcified gallstones. Biliary ducts: No biliary ductal dilatation. Pancreas: Unremarkable. Spleen: Normal in size. Adrenal Glands: No adrenal nodules. Kidneys and Ureters: No hydronephrosis. Stomach and Bowel: There are postsurgical changes along the stomach. Stomach and small bowel loops are normal in caliber and wall thickness. The appendix is not discretely visualized but there are no pericecal inflammatory changes to suggest appendicitis. There is segmental mild colonic wall thickening within the distal sigmoid colon and rectum with mucosal enhancement consistent with a colitis. Peritoneum: No abnormal intraperitoneal fluid. No free air. Ventral Wall: No hernia. Abdominal Nodes: No retroperitoneal or mesenteric adenopathy by size criteria. Vessels: Aorta and inferior vena cava are normal in size. PELVIS: Pelvic Organs: Unremarkable. Bladder: Unremarkable. Pelvic Nodes: No enlarged lymph nodes. Miscellaneous: No inguinal hernias are seen. Bones: Visualized osseous structures demonstrate no suspicious focal lesions. IMPRESSION: 1. Segmental wall thickening of the distal sigmoid colon and rectum consistent with a mild colitis, likely infectious or inflammatory in etiology. 2. No evidence of appendicitis. Dictated by: Dawson Kessler M.D. on 03/02/2022 at 22:44 Approved by: Dawson Kessler M.D. on 03/02/2022 at 22:47
--- NOTE | 2022-03-02 20:55 | ED.ABDPAIN ---
HPI - Abdominal Pain General Chief Complaint: Abdominal Pain Stated Complaint: severe abdominal pain Time Seen by Provider: 03/02/22 19:38 Source: patient Mode of arrival: Ambulatory History of Present Illness HPI narrative: Patient is a 51-year-old female history of Crohn's disease, recent gastric sleeve about 2 months ago presents today with right lower quadrant pain ongoing for a few days/she denies any fever or chills. She is bowel movements are normal no nausea or vomiting. She is followed closely with GI for her Crohn's trying to get approval for a different medication. She is taking prednisone 5 mg daily. She denies any chest pain cough shortness of breath or other symptoms Related Data Home Medications Medication Instructions Recorded Confirmed hydrocodone 5 mg-acetaminophen 325 1 tab PO BID PRN Pain, Mild 05/18/21 12/28/21 mg tablet prednisone 5 mg tablet 5 mg PO DAILY 05/18/21 12/28/21 trazodone 50 mg tablet 50 mg PO DAILY 05/18/21 12/28/21 methotrexate (PF) 25 mg/mL 25 mg SUBCUT QWEEK 09/29/21 12/28/21 subcutaneous syringe folic acid 1 mg tablet 1 mg PO DAILY 12/28/21 12/28/21 Allergies Allergy/AdvReac Type Severity Reaction Status Date / Time adalimumab [From Humira] Allergy Verified 03/02/22 19:47 metoclopramide [From Reglan] Allergy Verified 03/02/22 19:47 Penicillins Allergy Verified 03/02/22 19:47 prochlorperazine Allergy Verified 03/02/22 19:47 [From Compazine] Review of Systems Review of Systems Narrative: GENERAL: Denies chills,fever HEENT: Denies throat pain RESPIRATORY: Denies dyspnea, cough, wheezing CARDIOVASCULAR: Denies chest pain, palpitations GASTROINTESTINAL: See HPI MUSCULOSKELETAL: Denies extremity pain, injury SKIN: No rash, no laceration, no pruritus NEUROLOGIC: Denies weakness, dizziness, headache, numbness 8 point review of systems is negative except for those stated above and HPI Patient History Medical History Crohns disease DJD of AC (acromioclavicular) joint Insomnia Left knee DJD Lupus Obstructive sleep apnea (adult) (pediatric) Rheumatoid arthritis Surgical History S/P gastric sleeve procedure Family History Father No pertinent family history Social History household members: significant other Smoking Status: Never smoker alcohol intake: current Smoking Status: Never smoker alcohol intake frequency: holidays/special occasions only Substance Use Type: does not use Exam Initial Vital Signs Initial Vital Signs: Vital Signs Temperature 98.1 F 03/02/22 19:14 Pulse Rate 98 H 03/02/22 19:14 Respiratory Rate 18 03/02/22 19:14 Blood Pressure 157/102 H 03/02/22 19:14 Pulse Oximetry 98 03/02/22 19:14 Oxygen Delivery Method 03/02/22 19:14 GENERAL: Alert pleasant 51-year-old female sitting in chair no acute distress HEENT: Head atraumatic,EOMI, pupils reactive, face symmetric, moist mucous membranes CARDIOVASCULAR: Regular rate and rhythm without murmurs, rubs or gallops. RESPIRATORY: Breath sounds equal bilaterally, no wheezes rales or rhonchi. ABDOMEN: Soft, tender right lower quadrant no guarding no rebound : Minimal right CVA tenderness no left CVA tenderness EXTREMITIES: Normal range of motion, no clubbing or edema. Neurovascularly intact NEUROLOGICAL: Alert and oriented x4. SKIN: Warm, dry, no laceration, no petechiae, no rashes or lesions. Course Orders Ordered: Discontinued Medications Sodium Chloride (Normal Saline 0.9%) 1,000 mls @ 1,000 mls/hr IV BOLUS ONE Stop: 03/02/22 20:41 Last Infusion: 03/02/22 20:48 Dose: 0 mls/hr Documented By: Admin: 03/02/22 19:46 Dose: 1,000 mls/hr Documented By: PROSPER Ondansetron HCl (Ondansetron 4 Mg Odt) 4 mg PO NOW PRN PRN Reason: Nausea And Vomiting Ondansetron HCl (Ondansetron 4 Mg/2 Ml Inj) 4 mg IV NOW PRN PRN Reason: Nausea And Vomiting Vital Signs Vital signs: Vital Signs - 8 hr 03/02/22 19:14 Temperature 98.1 F Pulse Rate 98 H Respiratory Rate 18 Blood Pressure 157/102 H Pulse Oximetry 98 Oxygen Delivery Method Room Air MDM - Abdominal Pain Lab Data Result diagrams: 03/02/22 19:35 03/02/22 20:04 Labs: Lab Results 03/02/22 03/02/22 03/02/22 Range/Units 19:35 20:04 20:04 WBC 11.6 H (4.5-11.0) X10^3/uL RBC 4.61 (4.0-5.2) X10^6/uL Hgb 14.7 (12.0-16.0) g/dL Hct 44.5 (36-46) % MCV 96.6 (80-100) fL MCH 31.9 (26-34) PG MCHC 33.0 (30-36) % RDW 15.1 H (11.6-14.8) % Plt Count 343 (150-400) X10^3/uL Neut % (Auto) 47.5 L (50-75) % Lymph % (Auto) 38.2 (25-40) % [place] % (Auto) 11.5 (3-14) % Eos % (Auto) 2.0 (2-4) % Baso % (Auto) 0.8 (0-2) % Neut # (Auto) 5500 (1794-3565) /uL Lymph # (Auto) 4400 (0638-3124) /uL [place] # (Auto) 1300 H (0-900) /uL Eos # (Auto) 200 (0-450) /uL Baso # (Auto) 100 (0-100) /uL Sodium 140 (137-145) mmol/L Potassium 3.5 (3.4-5.1) mmol/L Chloride 105 (98-107) mmol/L Carbon Dioxide 25 (22-32) mmol/L BUN 23 H (7-17) mg/dL Creatinine 0.73 (0.52-1.04) mg/dL Estimated GFR > 60 (>60) mL/min BUN/Creatinine Ratio 31.5 H (6-22) Glucose 90 (70-100) mg/dL Lactate 0.8 (0.7-2.1) mmol/L Calcium 8.8 (8.4-10.2) mg/dL Total Bilirubin 0.3 (0.2-1.3) mg/dL AST 25 (14-36) IU/L ALT 26 (<35) IU/L Alkaline Phosphatase 68 (38-126) U/L Total Protein 7.3 (6.3-8.2) g/dL Albumin 4.0 (3.5-5.0) g/dL Globulin 3.3 (1.7-4.1) g/dL Albumin/Globulin Ratio 1.2 (1.0-2.8) Lipase 97 (23-300) U/L Imaging Data CT scan - abdomen/pelvis: Radiologist's Impression: CT Scan Report Signed Patient: Oanh Riddle MR#: [id number] : 1970 Acct:[id number] Age/Sex: 51 / F Date of Service: 03/02/22 Loc: ED Accession Number: [id number] ?? Procedure: CT abdomen pelvis w con Ordering Provider: Mojgan Trevino D.O. PROCEDURE:? CT ABDOMEN PELVIS W CON ? INDICATIONS:? rlq pain ? TECHNIQUE:? After the administration of IV contrast, axial sections were acquired from the lung bases to the pubic symphysis.? Coronal and sagittal reformats were performed.? For radiation dose reduction, the following was used:? automated exposure control, adjustment of mA and/or kV according to patient size. ? COMPARISON:? [facility], CT, CT ABDOMEN PELVIS W CON, 07/31/2017, 16:21. ? FINDINGS:? Image quality:? Excellent.? ? Lung bases:? Unremarkable.? ? Heart:? Heart is normal in size.? There is a small pericardial effusion. ? ? ABDOMEN: Liver:? No mass lesion. Gallbladder:? Within normal limits without calcified gallstones.? ? Biliary ducts:? No biliary ductal dilatation.? ? Pancreas:? Unremarkable.? ? Spleen:? Normal in size.? ? Adrenal Glands:? No adrenal nodules.? ? Kidneys and Ureters:? No hydronephrosis.? ? ? Stomach and Bowel:? There are postsurgical changes along the stomach.? Stomach and small bowel loops are normal in caliber and wall thickness.? The appendix is not discretely visualized but there are no pericecal inflammatory changes to suggest appendicitis.? There is segmental mild colonic wall thickening within the distal sigmoid colon and rectum with mucosal enhancement consistent with a colitis. Peritoneum:? No abnormal intraperitoneal fluid.? No free air.? ? Ventral Wall: ? No hernia.? Abdominal Nodes:? No retroperitoneal or mesenteric adenopathy by size criteria.? Vessels:? Aorta and inferior vena cava are normal in size.? ? PELVIS: Pelvic Organs:? Unremarkable.? ? Bladder:? Unremarkable.? ? Pelvic Nodes: No enlarged lymph nodes.? Miscellaneous: No inguinal hernias are seen. ? ? ? Bones:? Visualized osseous structures demonstrate no suspicious focal lesions. ? IMPRESSION:? ? 1. Segmental wall thickening of the distal sigmoid colon and rectum consistent with a mild colitis, likely infectious or inflammatory in etiology. ? 2. No evidence of appendicitis. ? ? Dictated by: Dawson Kessler M.D. on 03/02/2022 at 22:44 ? [facility] Narrative Medical decision making narrative: Patient has some mild right lower quadrant pain. CT shows some mild colitis. She does have history of Crohn's disease. She is constantly on prednisone 5 mg daily. Was not recommend she take prednisone after her gastric sleeve. At this time I recommend she follow-up with her doctors. She does not want anything stronger for pain she has plenty at home. Discharge Plan Departure Patient Disposition: Home Clinical Impression: Colitis, Crohn's colitis Instructions: DI for Colitis, DI for Crohn's Disease Flare Activity Restrictions/Additional Instructions: *You have been diagnosed with Crohn's colitis *What to do: At this time no need for antibiotics. Please talk with both here surgeon and your GI specialist but I do believe that you need to go up on her prednisone. *Continue to take medications as directed *Follow up with your primary care provider in 2-3 days or call [phone] Call your doctor tomorrow *Return to ER if you should have increasing pain fever bloody stool persistent vomiting or any new, worsening or concerning symptoms Prescriptions: No Action folic acid 1 mg Tablet 1 mg PO DAILY prednisone 5 mg tablet 5 mg PO DAILY trazodone 50 mg tablet 50 mg PO DAILY hydrocodone-acetaminophen 5-325 mg tablet 1 tab PO BID PRN (Reason: Pain, Mild) methotrexate (PF) 25 mg/mL syringe 25 mg SUBCUT QWEEK Referrals: Mike Linton MD [Primary Care Provider] - Visit Report Forms: Patient Portal/API
== END 2022-03-02 23:10 | disposition home or self-care (01) ==
PROVIDERS: Emergency Provider Emergency Medicine; PCP Family Medicine
DX: K50.10 Crohn's disease of large intestine without complications (principal); K52.9 Noninfective gastroenteritis and colitis, unspecified
CPT/HCPCS: 36415; 74177; 80053; 83605; 83690; 85025; 96360; 99284; Q9967

== ENCOUNTER → 2022-03-18 08:54 | Outpatient (CLI) | payer OTHER, SELFPAY ==
[2022-03-22 14:36] LABS: QuantiFERON Mitogen Value >10.00 IU/mL (.); QuantiFERON Nil Value 0.09 IU/mL (.); QuantiFERON TB Gold Plus Negative (Negative); QuantiFERON TB1 Ag Value 0.08 IU/mL (.); QuantiFERON TB2 Ag Value 0.08 IU/mL (.)
== END ==
PROVIDERS: PCP Family Medicine; Referring Provider Internal Medicine Gastroenterology; Visit Provider Internal Medicine Gastroenterology
DX: K50.813 Crohn's disease of both small and large intestine with fistula (principal)
CPT/HCPCS: 86480

== ENCOUNTER → 2022-04-14 07:25 | Outpatient (CLI) | payer OTHER, SELFPAY ==
--- NOTE | 2022-04-14 | DI.MG.S_ITS ---
BILATERAL DIGITAL SCREENING MAMMOGRAM 3D/2D WITH CAD: 04/14/2022 CLINICAL: Routine screening. Comparison is made to exam dated: 08/23/2017 mammogram - outside location. There are scattered areas of fibroglandular density in both breasts (category b / 25%-50% glandular tissue). Current study was also evaluated with a Computer Aided Detection (CAD) system. No significant masses, calcifications, or other findings are seen in either breast. There has been no significant interval change. IMPRESSION: NEGATIVE There is no mammographic evidence of malignancy. A 1 year screening mammogram is recommended. Based on the Tyrer Cuzick model (a risk assessment model) the patient's lifetime risk is 6.8% and her 10 year risk is 1.8%. According to the ACR, ACS, and NCCN guidelines, an annual breast MRI exam along with mammogram is recommended if the patient's lifetime risk is 20% or greater. This exam was interpreted at Station ID: [id number]. NOTE: For mammograms, a report in lay terms will be sent to the patient. Approximately 15% of breast malignancies will not be visualized mammographically. In the management of a palpable breast mass, a negative mammogram must not discourage biopsy of a clinically suspicious lesion. Electronically Signed By: Jimbo holly/svetlana:04/14/2022 08:32:03 letter sent: Normal Exam ACR BI-RADS Category 1: Negative 3341F
== END ==
PROVIDERS: PCP Family Medicine; Referring Provider Family Medicine; Visit Provider Family Medicine
DX: Z12.31 Encounter for screening mammogram for malignant neoplasm of breast (principal)
CPT/HCPCS: 77063; 77067

== ENCOUNTER → 2022-05-23 07:55 | Outpatient (CLI) | payer OTHER, SELFPAY ==
--- NOTE | 2022-05-23 07:56 | DI.US.S_ITS ---
PROCEDURE: US PELVIC COMPLETE INDICATIONS: POST MENOPAUSAL BLEEDING TECHNIQUE: Real-time scanning was performed of the pelvic organs, with image documentation. Additional endovaginal scanning was necessary due to incomplete visualization of the adnexal and endometrial structures by transabdominal scanning. COMPARISON: [facility], CT, CT ABDOMEN PELVIS W CON, 03/02/2022, 21:06. FINDINGS: Uterus: Uterus is anteverted and normal in size at 6.2 x 2.4 x 3.5 cm. The myometrium is heterogeneous secondary to midbody anterior and posterior uterine fibroids. Posterior myometrial fibroid measures up to 2.0 cm. Anterior fundal myometrial fibroid measures up to 1.6 cm. The endometrial stripe is not well seen. Where it can be seen at the fundus, it measures about 2.5 mm in thickness. Ovaries: The right ovary is predominantly shadowed, but likely measures 2.2 x 1.7 x 1.0 cm, with a calculated ovarian volume of 2.0 cc. The left ovary measures 1.4 x 1.7 x 1.3 cm, with a calculated ovarian volume of 1.1 cc. The ovaries have a normal sonographic appearance. No dominant follicle on either ovary. No adnexal masses are seen. Other: No pathologic free abdominal or pelvic fluid. IMPRESSION: 1. Uterine fibroids and parenchymal heterogeneity obscure visualization of the majority of the endometrial stripe. Uterine fibroids may encroach upon the endometrium and can cause postmenopausal bleeding. 2. No visible abnormal thickening of the endometrial stripe. 3. Appropriate appearance of the ovaries for postmenopausal female. We strive to produce accurate, complete, and clear reports of imaging services. To assist us in improving patient care, this report was composed using standard report templates and voice recognition software. Therefore, it may contain abnormal punctuation, insertions and/or omissions. Occasional wrong-word or sound-alike substitutions may occur. Though we review the report and make efforts to correct it, we do recommend that the report be read carefully in proper context to recognize any text inaccuracies. Dictated by: Gina Dunlap M.D. on 05/23/2022 at 11:34 Approved by: Gina Dunlap M.D. on 05/23/2022 at 11:38
== END ==
PROVIDERS: PCP Family Medicine; Referring Provider Physician Assistant Medical; Visit Provider Physician Assistant Medical
DX: N95.0 Postmenopausal bleeding (principal); D25.9 Leiomyoma of uterus, unspecified
CPT/HCPCS: 76830; 76856

== ENCOUNTER → 2022-06-30 07:47 | Outpatient (CLI) | payer OTHER, SELFPAY ==
[2022-06-30 08:41] LABS: Add Manual Diff / Slide Review NO; Basophils Absolute Auto 100 /uL (0-100); Basophils Percent Auto 0.8 % (0-2); Eosinophils Absolute Auto 200 /uL (0-450); Eosinophils Percent Auto 2.7 % (2-4); Hematocrit 43.5 % (36-46); Lymphocytes Absolute Auto 3200 /uL (1100-4500); Lymphocytes Percent Auto 37.8 % (25-40); Mean Corpuscular HGB Conc 34.4 % (30-36); Mean Corpuscular Hemoglobin 31.6 PG (26-34); Monocytes Absolute Auto 700 /uL (0-900); Neutrophils Absolute Auto 4300 /uL (1500-7000); Neutrophils Percent Auto 50.7 % (50-75); Platelet Count 397 X10^3/uL (150-400); Red Blood Cell Count 4.73 X10^6/uL (4.0-5.2); Red Cell Distribution Width 14.4 % (11.6-14.8); White Blood Cell Count 8.5 X10^3/uL (4.5-11.0)
[2022-06-30 09:05] LABS: HEMOLYSIS < 15 (0-50); Iron 97 ug/dL (37-170)
[2022-06-30 09:13] LABS: Alanine Aminotransferase 21 IU/L (<35); Albumin 4.2 g/dL (3.5-5.0); Albumin Globulin Ratio 1.2 (1.0-2.8); Alkaline Phosphatase 78 U/L (38-126); Aspartate Aminotransferase 27 IU/L (14-36); Bilirubin Total 0.6 mg/dL (0.2-1.3); Blood Urea Nitrogen 21 mg/dL (7-17); Calcium 9.5 mg/dL (8.4-10.2); Carbon Dioxide 28 mmol/L (22-32); Chloride 104 mmol/L (98-107); Cholesterol 260 mg/dL (140-199); Estimated Glomerular Filt Rate > 60 mL/min (>60); Globulin 3.4 g/dL (1.7-4.1); Glucose 83 mg/dL (70-100); HDL Cholesterol 45 mg/dL (40-60); HEMOLYSIS < 15 (0-50); LDL Cholesterol Calculated 186 mg/dL (<100); Potassium 3.7 mmol/L (3.4-5.1); Sodium 140 mmol/L (137-145); Total Protein 7.6 g/dL (6.3-8.2); Triglycerides 147 mg/dL (35-150)
[2022-06-30 09:15] LABS: Percent Iron Saturation 35 % (15-50); Total Iron Binding Capacity 275 ug/dL (265-497); Transferrin 216 mg/dL (206-381)
[2022-06-30 09:22] LABS: Vitamin D 25 Hydroxy (D3) 23.9 ng/mL (30.0-100.0)
[2022-06-30 09:40] LABS: Ferritin 56 ng/mL (11-264)
[2022-06-30 09:42] LABS: TSH w/ Reflex to FT4 0.16 uIU/mL (0.47-4.68)
[2022-06-30 10:00] LABS: Vitamin B12 > 1000 pg/mL (239-931)
[2022-06-30 10:12] LABS: Free T4, Direct Thyroxine 1.28 ng/dL (0.78-2.19)
[2022-06-30 21:12] LABS: Labcorp Hemoglobin (Hb) A1c 5.3 % (4.8-5.6)
[2022-07-05 10:14] LABS: Hematocrit 42.9; Parathyroid Hormone Int 29
== END ==
PROVIDERS: Internal Medicine Medical Oncology; PCP Family Medicine; Referring Provider Nurse Practitioner Family; Visit Provider Nurse Practitioner Family
DX: K91.2 Postsurgical malabsorption, not elsewhere classified (principal); Z90.3 Acquired absence of stomach [part of]; E83.119 Hemochromatosis, unspecified
CPT/HCPCS: 36415; 80053; 80061; 82306; 82607; 82728; 82747; 83036; 83540; 83550; 83970; 84425; 84439; 84443; 84590; 85014; 85025

== ENCOUNTER → 2022-07-05 16:51 | Outpatient (CLI) | payer OTHER, SELFPAY ==
--- NOTE | 2022-07-05 16:54 | DI.RAD.S_ITS ---
PROCEDURE: XR SHOULDER LT MIN 2V INDICATIONS: Left Shoulder Pain TECHNIQUE: 3 views of the shoulder were acquired. COMPARISON: [facility], CR, XR SHOULDER LT MIN 2V, 05/18/2021, 12:43. FINDINGS: Bones: No fractures or dislocations. No suspicious bony lesions. Visualized ribs appear intact. Moderate AC joint hypertrophy present. Soft tissues: No suspicious soft tissue calcifications. IMPRESSION: No acute osseous abnormality. Degenerative changes of the acromioclavicular joint are present. If symptoms persist, follow-up radiographs and/or CT or MRI may be helpful for further evaluation. Dictated by: Ever Roy M.D. on 07/06/2022 at 11:56 Approved by: Ever Roy M.D. on 07/06/2022 at 11:59
== END ==
PROVIDERS: PCP Family Medicine; Referring Provider Physical Medicine & Rehabilitation; Visit Provider Physical Medicine & Rehabilitation
DX: M25.512 Pain in left shoulder (principal)
CPT/HCPCS: 73030

== ENCOUNTER → 2022-07-19 13:16 | Outpatient (CLI) | payer OTHER, SELFPAY ==
[2022-07-19 15:47] LABS: TSH w/ Reflex to FT4 0.44 uIU/mL (0.47-4.68)
[2022-07-19 17:09] LABS: Free T4, Direct Thyroxine 1.11 ng/dL (0.78-2.19)
== END ==
PROVIDERS: PCP Family Medicine; Referring Provider Nurse Practitioner Family; Visit Provider Nurse Practitioner Family
DX: K91.2 Postsurgical malabsorption, not elsewhere classified (principal)
CPT/HCPCS: 36415; 84439; 84443

== ENCOUNTER → 2022-07-28 16:42 | Outpatient (CLI) | payer OTHER, SELFPAY ==
--- NOTE | 2022-07-28 16:43 | DI.MRI.S_ITS ---
PROCEDURE: MR CERVICAL SPINE WO CON INDICATIONS: Spinal stenosis, cervical region TECHNIQUE: Noncontrast sagittal T1 spin echo and T2 fast spin echo, sagittal STIR, foraminal oblique sagittal T2 fast spin echo, and axial gradient echo or T2 fast spin echo through the cervical spine. COMPARISON: None. FINDINGS: Image quality: Excellent. Alignment and Curvature: There is trace retrolisthesis of C5 on C6. Bone Marrow: Marrow demonstrates normal overall signal. Spinal Cord: Visualized spinal cord has normal size and signal. No cerebellar tonsillar herniation. Paraspinous Soft Tissues: No paravertebral masses. Prevertebral soft tissues are normal in thickness. Discs: Minimal to mild desiccation is present at C5-6 and C6-7. C2-C3: No disc bulge, spinal stenosis or foraminal narrowing. C3-C4: No disc bulge, spinal stenosis or foraminal narrowing. C4-C5: No disc bulge, spinal stenosis or foraminal narrowing. C5-C6: Mild disc bulge with effacement of the anterior thecal sac and mild spinal stenosis. Moderate left and mild moderate right foraminal narrowing with uncovertebral hypertrophy. C6-C7: Mild disc bulge with effacement of the anterior thecal sac and minimal to mild spinal stenosis. [id number] bilateral foraminal narrowing with uncovertebral hypertrophy. C7-T1: No disc bulge, spinal stenosis or foraminal narrowing. IMPRESSION: Degenerative changes most notable at C5-6 and C6-7 demonstrating minimal to mild spinal stenosis as well as [id number] foraminal narrowing. Dictated by: Leah Rayo M.D. on 07/29/2022 at 14:32 Approved by: Leah Rayo M.D. on 07/29/2022 at 14:35
== END ==
PROVIDERS: PCP Family Medicine; Referring Provider Neurological Surgery; Visit Provider Neurological Surgery
DX: G93.5 Compression of brain (principal); M48.02 Spinal stenosis, cervical region; G44.229 Chronic tension-type headache, not intractable; M47.812 Spondylosis without myelopathy or radiculopathy, cervical region
CPT/HCPCS: 72141

== ENCOUNTER → 2022-08-03 09:16 | Outpatient (CLI) | payer OTHER, SELFPAY ==
[2022-08-03 11:01] LABS: Free T3, Triiodothyronine Free 3.69 pg/mL (2.77-5.27); Free T4, Direct Thyroxine 1.09 ng/dL (0.78-2.19)
[2022-08-03 11:14] LABS: Thyroid Stimulating Hormone 0.783 uIU/mL (0.47-4.68)
== END ==
PROVIDERS: PCP Family Medicine; Referring Provider Family Medicine; Visit Provider Family Medicine
DX: E23.0 Hypopituitarism (principal)
CPT/HCPCS: 36415; 84439; 84443; 84481

== ENCOUNTER → 2022-11-03 07:32 | Outpatient (CLI) | payer OTHER, SELFPAY ==
[2022-11-05 10:11] LABS: Calprotectin, Stool 105 ug/g (0-120)
== END ==
PROVIDERS: PCP Family Medicine; Referring Provider Internal Medicine Gastroenterology; Visit Provider Internal Medicine Gastroenterology
DX: K50.813 Crohn's disease of both small and large intestine with fistula (principal)
CPT/HCPCS: 83993

== ENCOUNTER → 2023-01-13 | Outpatient (CLI) | payer OTHER, SELFPAY | PROVIDERS: Family Provider Family Medicine; PCP Family Medicine; Referring Provider Family Medicine; Visit Provider Family Medicine | DX: Z23 Encounter for immunization (principal) | CPT/HCPCS: 90471; 90686 ==

== ENCOUNTER → 2023-04-17 16:22 | Outpatient (CLI) | payer OTHER, SELFPAY ==
--- NOTE | 2023-04-17 16:23 | DI.MG.S_ITS ---
BILATERAL DIGITAL SCREENING MAMMOGRAM 3D/2D WITH CAD: 04/17/2023 CLINICAL: Routine screening. Comparison is made to exams dated: 04/14/2022 mammogram - [facility] and 08/23/2017 mammogram - outside location. There are scattered areas of fibroglandular density in both breasts (category b / 25%-50% glandular tissue). Current study was also evaluated with a Computer Aided Detection (CAD) system. No significant masses, calcifications, or other findings are seen in either breast. There has been no significant interval change. IMPRESSION: NEGATIVE There is no mammographic evidence of malignancy. A 1 year screening mammogram is recommended. Based on the Tyrer Cuzick model (a risk assessment model) the patient's lifetime risk is 6.8% and her 10 year risk is 1.9%. According to the ACR, ACS, and NCCN guidelines, an annual breast MRI exam along with mammogram is recommended if the patient's lifetime risk is 20% or greater. This exam was interpreted at Station ID: [id number]. NOTE: For mammograms, a report in lay terms will be sent to the patient. Approximately 15% of breast malignancies will not be visualized mammographically. In the management of a palpable breast mass, a negative mammogram must not discourage biopsy of a clinically suspicious lesion. Electronically Signed By: Esperanza Barney M.D., PH.D hardeep/svetlana:04/18/2023 15:36:46 letter sent: Normal Exam ACR BI-RADS Category 1: Negative [id number]
== END ==
LOC: MAMMO 16:23
PROVIDERS: Family Provider Family Medicine; PCP Family Medicine; Referring Provider Family Medicine; Visit Provider Family Medicine
DX: Z12.31 Encounter for screening mammogram for malignant neoplasm of breast (principal); R92.323 Mammographic fibroglandular density, bilateral breasts
CPT/HCPCS: 77063; 77067

== ENCOUNTER 2023-06-12 17:59 | Emergency (ER) | payer OTHER, SELFPAY ==
[2023-06-12 18:03] VITALS: BP 163/84; PULSE 85; RESP 18; TEMP 36.6; O2SAT 98; BMI 28.9
[2023-06-12 18:24] LABS: Add Manual Diff / Slide Review NO; Basophils Absolute Auto 100 /uL (0-100); Basophils Percent Auto 0.9 % (0-2); Eosinophils Absolute Auto 100 /uL (0-450); Eosinophils Percent Auto 0.8 % (2-4); Hematocrit 42.3 % (36-46); Hemoglobin 14.3 g/dL (12.0-16.0); Lymphocytes Absolute Auto 4700 /uL (1100-4500); Lymphocytes Percent Auto 41.6 % (25-40); Mean Corpuscular HGB Conc 33.7 % (30-36); Mean Corpuscular Hemoglobin 30.8 PG (26-34); Mean Corpuscular Volume 91.2 fL (80-100); Monocytes Absolute Auto 700 /uL (0-900); Monocytes Percent Auto 5.9 % (3-14); Neutrophils Absolute Auto 5700 /uL (1500-7000); Neutrophils Percent Auto 50.8 % (50-75); Platelet Count 436 X10^3/uL (150-400); Red Blood Cell Count 4.64 X10^6/uL (4.0-5.2); Red Cell Distribution Width 13.7 % (11.6-14.8); White Blood Cell Count 11.3 X10^3/uL (4.5-11.0)
[2023-06-12 18:42] LABS: Bacteria Urine Occasional (0-1); Culture Indicated Urine Cult Not Indicated; Mucus Urine 3+ (Negative); RBC Urine 1-5/HPF (0-5/HPF); Squamous Epithelial Cell Urine 10-30 /HPF (0-5/HPF); Urine Volume 10mL (spun); WBC Urine 1-5/HPF (0-5/HPF)
[2023-06-12 18:44] LABS: Alanine Aminotransferase 16 IU/L (<35); Albumin 4.4 g/dL (3.5-5.0); Albumin Globulin Ratio 1.1 (1.0-2.8); Alkaline Phosphatase 91 U/L (38-126); Aspartate Aminotransferase 24 IU/L (14-36); BUN Creatinine Ratio 28.9 (6-22); Bilirubin Total 0.4 mg/dL (0.2-1.3); Blood Urea Nitrogen 24 mg/dL (7-17); Carbon Dioxide 26 mmol/L (22-32); Chloride 105 mmol/L (98-107); Estimated Glomerular Filt Rate > 60 mL/min (>60); Glucose 93 mg/dL (70-100); HEMOLYSIS < 15 (0-50); Lipase 118 U/L (23-300); Sodium 139 mmol/L (137-145); Total Protein 8.4 g/dL (6.3-8.2)
--- NOTE | 2023-06-12 18:57 | ED.GENADULT ---
HPI - General Adult General Chief complaint: Abdominal Pain Stated complaint: abd pain Time Seen by Provider: 06/12/23 18:24 Source: patient Mode of arrival: Ambulatory History of Present Illness HPI narrative: 52-year-old female here for evaluation of upper abdominal discomfort that has been present for the past couple days. She has a history of Crohn's disease. Is scheduled for colonoscopy in the next couple weeks. Last colonoscopy was 2 years ago. She denies diarrhea. No blood in her stool. No urinary symptoms. No vaginal bleeding. No vomiting. No fevers. She feels like her abdomen is somewhat distended. Not worse with palpation or movement or eating. Related Data Home Medications Medication Instructions Recorded Confirmed prednisone 5 mg tablet 5 mg PO DAILY 05/18/21 06/06/23 folic acid 1 mg tablet 1 mg PO DAILY 12/28/21 06/06/23 hydrocodone 5 mg-acetaminophen 325 1 tab PO BID PRN 05/09/22 06/06/23 mg tablet methotrexate sodium 25 mg/mL 25 mg IM QWEEK 07/06/22 06/06/23 injection solution risankizumab-rzaa 360 mg/2.4 mL ml SUBCUT 07/06/22 06/06/23 (150 mg/mL) subcut wearable injector (Skyrizi) syringe with needle 1 mL 25 gauge #50 ea 07/06/22 06/06/23 x 5/8 (BD Tuberculin Syringe) trazodone 100 mg tablet 100 mg PO BEDTIME 07/06/22 06/06/23 docusate sodium 100 mg capsule 100 mg PO BID 04/11/23 06/06/23 sulfasalazine 500 mg tablet 1,000 mg PO BID 04/11/23 06/06/23 metformin 500 mg tablet 500 mg PO BID PRN 06/06/23 06/06/23 Previous Rx's Medication Instructions Recorded fluticasone propionate 50 1 spray intranasal Q12H #16 grams 03/22/23 mcg/actuation nasal spray,suspension (Flonase Allergy Relief) Allergies Allergy/AdvReac Type Severity Reaction Status Date / Time adalimumab [From Humira] Allergy Verified 06/12/23 18:07 metoclopramide [From Reglan] Allergy Verified 06/12/23 18:07 Penicillins Allergy Verified 06/12/23 18:07 prochlorperazine Allergy Verified 06/12/23 18:07 [From Compazine] Review of Systems Constitutional Constitutional: Reports system reviewed and no additional complaints, except as documented Gastrointestinal Gastrointestinal: Reports system reviewed and no additional complaints, except as documented Genitourinary Genitourinary: Reports system reviewed and no additional complaints, except as documented Musculoskeletal Musculoskeletal: Reports system reviewed and no additional complaints, except as documented Integumentary/Breasts Skin/Breast: Reports system reviewed and no additional complaints, except as documented Neurologic Neurologic: Reports system reviewed and no additional complaints, except as documented Patient History Medical History Thoracic back pain Neck pain Myofascial pain Insomnia Obstructive sleep apnea (adult) (pediatric) 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 Rheumatoid arthritis Lupus Crohns disease Surgical History S/P gastric sleeve procedure Family History Father No pertinent family history Social History household members: significant other Smoking Status: Never smoker alcohol intake: current Smoking Status: Never smoker alcohol intake frequency: holidays/special occasions only Substance Use Type: does not use Exam Initial Vital Signs Initial Vital Signs: Vital Signs Temperature 97.8 F 06/12/23 18:03 Pulse Rate 85 06/12/23 18:03 Respiratory Rate 18 06/12/23 18:03 Blood Pressure 163/84 H 06/12/23 18:03 Pulse Oximetry 98 06/12/23 18:03 Oxygen Delivery Method Room Air 06/12/23 18:03 Const General: cooperative, comfortable and No ill appearing HENMT Head: normal to inspection and normocephalic GI Inspection: normal to inspection and non-distended Palpation: soft, No firm, No guarding and tender Skin General: no rashes or lesions noted Neuro General: patient alert, patient awake and moves all extremities Course Orders Ordered: ED Orders 06/12/23 18:07 EKG-12 Lead Stat 06/12/23 18:14 Complete Blood Count AUTO DIFF Stat Comprehensive Metabolic Panel Stat Lipase Stat Urine Culture Stat Urine Microscopic Stat 06/12/23 18:57 CT abdomen pelvis w con Stat Discontinued Medications Ondansetron HCl (Ondansetron 4 Mg/2 Ml Inj) 4 mg IV NOW PRN PRN Reason: Nausea And Vomiting Ondansetron HCl (Ondansetron 4 Mg Odt) 4 mg PO NOW PRN PRN Reason: Nausea And Vomiting Vital Signs Vital signs: Vital Signs - 8 hr 06/12/23 18:03 06/12/23 19:48 06/12/23 20:58 Temperature 97.8 F Pulse Rate 85 68 85 Respiratory Rate 18 17 16 Blood Pressure 163/84 H 138/93 H 135/78 Pulse Oximetry 98 98 98 Oxygen Delivery Method Room Air Room Air Room Air Medical Decision Making Lab Data Lab results reviewed: Yes I reviewed the patient's lab results. 06/12/23 18:14 06/12/23 18:14 Labs: Lab Results 06/12/23 Range/Units 18:14 WBC 11.3 H (4.5-11.0) X10^3/uL RBC 4.64 (4.0-5.2) X10^6/uL Hgb 14.3 (12.0-16.0) g/dL Hct 42.3 (36-46) % MCV 91.2 (80-100) fL MCH 30.8 (26-34) PG MCHC 33.7 (30-36) % RDW 13.7 (11.6-14.8) % Plt Count 436 H (150-400) X10^3/uL Neut % (Auto) 50.8 (50-75) % Lymph % (Auto) 41.6 H (25-40) % [place] % (Auto) 5.9 (3-14) % Eos % (Auto) 0.8 L (2-4) % Baso % (Auto) 0.9 (0-2) % Neut # (Auto) 5700 (2625-3150) /uL Lymph # (Auto) 4700 H (2577-7607) /uL [place] # (Auto) 700 (0-900) /uL Eos # (Auto) 100 (0-450) /uL Baso # (Auto) 100 (0-100) /uL Sodium 139 (137-145) mmol/L Potassium 4.0 (3.4-5.1) mmol/L Chloride 105 (98-107) mmol/L Carbon Dioxide 26 (22-32) mmol/L BUN 24 H (7-17) mg/dL Creatinine 0.83 (0.52-1.04) mg/dL Estimated GFR > 60 (>60) mL/min BUN/Creatinine Ratio 28.9 H (6-22) Glucose 93 (70-100) mg/dL Calcium 10.0 (8.4-10.2) mg/dL Total Bilirubin 0.4 (0.2-1.3) mg/dL AST 24 (14-36) IU/L ALT 16 (<35) IU/L Alkaline Phosphatase 91 (38-126) U/L Total Protein 8.4 H (6.3-8.2) g/dL Albumin 4.4 (3.5-5.0) g/dL Globulin 4.0 (1.7-4.1) g/dL Albumin/Globulin Ratio 1.1 (1.0-2.8) Lipase 118 (23-300) U/L Urine RBC 1-5/hpf (0-5/HPF) Urine WBC 1-5/hpf (0-5/HPF) Ur Squamous Epith Cells 10-30 /hpf H (0-5/HPF) Urine Bacteria Occasional (0-1) (None) Urine Mucus 3+ H (Negative) Ur Culture Indicated? Cult not indicated Vol Urine Centrifuged 10ml (spun) Urine Dip Bedside Urine Glucose Negative Bedside Urine Bilirubin - Negative Bedside Urine Ketone - Negative Urine Specific [place] 1.030 Bedside Urine Occult Blood ++ Bedside Urine pH 6.0 Bedside Urine Protein - Negative Bedside Urine Urobilinogen - Negative Bedside Urine Nitrite - Negative Bedside Urine Leukocytes - Negative Esterase Point of care testing: Urine Dip Bedside Urine Glucose Negative Bedside Urine Bilirubin - Negative Bedside Urine Ketone - Negative Urine Specific [place] 1.030 Bedside Urine Occult Blood ++ Bedside Urine pH 6.0 Bedside Urine Protein - Negative Bedside Urine Urobilinogen - Negative Bedside Urine Nitrite - Negative Bedside Urine Leukocytes - Negative Esterase Imaging Data CT scan - abdomen/pelvis: Radiologist's Impression: PROCEDURE: CT ABDOMEN PELVIS W CON INDICATIONS: hx of gastric sleeve and Crohn's with upper abdominal pain TECHNIQUE: After the administration of intravenous contrast, axial sections acquired from the lung bases to the pubic symphysis. Coronal and sagittal reformats were performed. For radiation dose reduction, the following was used: automated exposure control, adjustment of mA and/or kV according to patient size. COMPARISON: [facility], CT, CT ABDOMEN PELVIS W CON, 03/02/2022, 21:06. [facility], CT, CT ABDOMEN PELVIS W CON, 07/31/2017, 16:21. FINDINGS: Image quality: Diagnostic. Lower Chest: No significant findings. ABDOMEN: Liver: No solid mass. Gallbladder: No radiopaque gallstones or wall thickening. Biliary ducts: No biliary dilation. Pancreas: No ductal dilation. Spleen: Size is within normal limits. Adrenal Glands: No adrenal nodules. Kidneys and Ureters: No hydronephrosis. No solid mass. No complex renal cystic lesion which requires follow up. Stomach and Bowel: No evidence for bowel obstruction. Persistent mild circumferential thickening of the distal sigmoid colon rectum without significant surrounding inflammation. Stable postsurgical changes of sleeve gastrectomy. Peritoneum: No abnormal intraperitoneal fluid. No free air. Ventral Wall: No significant ventral hernia. Abdominal Nodes: No retroperitoneal or mesenteric adenopathy by size criteria. Vessels: Aorta and inferior vena cava are normal in size. PELVIS: Pelvic Organs: Unremarkable. Bladder: No bladder wall thickening, accounting for underdistention. Pelvic Nodes: No enlarged lymph nodes. Miscellaneous: No inguinal hernias are seen. Bones: No aggressive osseous abnormality. IMPRESSION: 1. Redemonstration of mild circumferential wall thickening of the distal sigmoid colon rectum likely representing mild colitis. This may be infectious or inflammatory in etiology. 2. Otherwise, no acute abnormalities identified in the abdomen or pelvis. 3. Stable postsurgical changes of prior sleeve gastrectomy. MDM Narrative Medical decision making narrative: Patient does have a benign exam. LFTs and lipase unremarkable. CT scan shows findings that are consistent with colitis however no signs of obstruction. No signs of diverticulitis. She reports no change in bowel habits. No indication for antibiotics. No indication for acute surgical consultation. I did discuss this with the patient. Recommended that she keep her appointment with her GI doctor in her colonoscopy in the next couple weeks. She was given return precautions. She expressed understanding and agreement with plan. Discharge Plan Departure Patient Disposition: Home Clinical Impression: Abdominal pain, Colitis Instructions: DI for Abdominal Pain-Adult Activity Restrictions/Additional Instructions: Continue to take all of your medications as directed. Recommend that you contact your GI doctor tomorrow to let them know that you did have a CT scan done today. They can review the scan to see if they want to make any changes to the timing of your colonoscopy of the beginning of next month. I do recommend a bland diet. Return to the emergency department for new or worsening symptoms. Prescriptions: No Action fluticasone propionate [Flonase Allergy Relief] 50 mcg/actuation spray,suspension 1 spray intranasal Q12H Qty: 16 0RF Rx Instructions: administer into each nostril hydrocodone-acetaminophen 5-325 mg tablet 1 tab PO BID PRN folic acid 1 mg Tablet 1 mg PO DAILY metformin 500 mg tablet 500 mg PO BID PRN prednisone 5 mg tablet 5 mg PO DAILY Skyrizi 360 mg/2.4 mL (150 mg/mL) wearable injector SUBCUT (DME) BD Tuberculin Syringe 1 mL 25 gauge x 5/8 syringe See Rx Instructions .ROUTE .MEDSUPPLY Qty: 50 Rx Instructions: As directed trazodone 100 mg tablet 100 mg PO BEDTIME methotrexate sodium 25 mg/mL solution 25 mg IM QWEEK sulfasalazine 500 mg tablet 1,000 mg PO BID docusate sodium 100 mg capsule 100 mg PO BID Referrals: Mike Linton MD [Primary Care Provider] - Stand Alone Forms: Patient Portal/API
[2023-06-12 19:48] VITALS: BP 138/93; PULSE 68; RESP 17; O2SAT 98
[2023-06-12 20:58] VITALS: BP 135/78; PULSE 85; RESP 16; O2SAT 98
== END 2023-06-12 20:59 | disposition home or self-care (01) ==
PROVIDERS: Emergency Provider Emergency Medicine; Family Provider Family Medicine; PCP Family Medicine
DX: K52.9 Noninfective gastroenteritis and colitis, unspecified (principal); R10.10 Upper abdominal pain, unspecified; Z79.899 Other long term (current) drug therapy
CPT/HCPCS: 36415; 74177; 80053; 81003; 81015; 83690; 85025; 87086; 99284; Q9967

== ENCOUNTER → 2023-08-02 07:20 | Outpatient (CLI) | payer OTHER, SELFPAY ==
[2023-08-02 07:52] LABS: Add Manual Diff / Slide Review NO; Basophils Absolute Auto 100 /uL (0-100); Basophils Percent Auto 0.9 % (0-2); Eosinophils Absolute Auto 200 /uL (0-450); Hemoglobin 13.8 g/dL (12.0-16.0); Lymphocytes Absolute Auto 4900 /uL (1100-4500); Lymphocytes Percent Auto 55.3 % (25-40); Mean Corpuscular HGB Conc 33.7 % (30-36); Mean Corpuscular Hemoglobin 30.2 PG (26-34); Mean Corpuscular Volume 89.7 fL (80-100); Monocytes Absolute Auto 700 /uL (0-900); Monocytes Percent Auto 7.6 % (3-14); Neutrophils Absolute Auto 3000 /uL (1500-7000); Neutrophils Percent Auto 34.2 % (50-75); Platelet Count 418 X10^3/uL (150-400); Red Blood Cell Count 4.57 X10^6/uL (4.0-5.2); Red Cell Distribution Width 14.3 % (11.6-14.8); White Blood Cell Count 8.9 X10^3/uL (4.5-11.0)
[2023-08-02 08:06] LABS: Cholesterol 229 mg/dL (140-199); HDL Cholesterol 55 mg/dL (40-60); LDL Cholesterol Calculated 147 mg/dL (<100); Triglycerides 135 mg/dL (35-150)
[2023-08-02 08:26] LABS: Free T3, Triiodothyronine Free 3.42 pg/mL (2.77-5.27); Free T4, Direct Thyroxine 1.11 ng/dL (0.78-2.19)
[2023-08-02 08:39] LABS: Thyroid Stimulating Hormone 1.02 uIU/mL (0.47-4.68)
== END ==
PROVIDERS: Family Provider Family Medicine; PCP Family Medicine; Referring Provider Physician Assistant Medical; Visit Provider Physician Assistant Medical
DX: R53.83 Other fatigue (principal); R68.89 Other general symptoms and signs; Z01.89 Encounter for other specified special examinations
CPT/HCPCS: 36415; 80061; 84439; 84443; 84481; 85025

== ENCOUNTER → 2023-09-04 10:17 | Outpatient (CLI) | payer OTHER, SELFPAY ==
--- NOTE | 2023-09-04 | DI.RAD.S_ITS ---
PROCEDURE: XR DEXA AXIAL SKELETON INDICATIONS: Rheumatoid arthritis with rheumatoid factor COMPARISON: None. FINDINGS: Lumbar Spine: Bone mineral density 1.039 g/cm2, T score -0.4. Left Hip: Bone mineral density 0.785 g/cm2, T score -1.3. Left Femoral Neck: Bone mineral density 0.701 g/cm2, T score -1.3. Right Hip: Bone mineral density 0.805 g/cm2, T score -1.1. Right Femoral Neck: Bone mineral density 0.738 g/cm2, T score -1.0. Fracture Risk Calculation (when applicable): 10-year fracture risk of a major osteoporotic fracture 12% and of a hip fracture 0.7%. Risk factors increased to 20% and 1.4% respectively in the presence of prior fracture history. (T score greater or equal to -1.0 to: NORMAL) (T score from -1.1 to -2.4: OSTEOPENIA) (T score less than or equal to -2.5: OSTEOPOROSIS) IMPRESSION: Mild osteopenia within the hips as above. Follow-up guidelines as follows: Osteoporosis: Consider a repeat DEXA and Vertebral Fracture Assessment (VFA) exam in 2 years or sooner if medically necessary, to reassess this patient's status. Osteopenia: Consider a repeat DEXA in 2-3 years to reassess this patient's status, or if there is a new clinical indication. Normal: Consider a repeat DEXA in 5 years or sooner, or if there is a new clinical indication. All treatment decisions require clinical judgment and consideration of individual patient factors, including patient preferences, comorbidities, previous drug use, risk factors not captured in the FRAX model (e.g., frailty, falls, vitamin D deficiency, increased bone turnover, interval significant decline in bone density ) and possible under- or over-estimation of fracture risk by FRAX. In addition, the NOF Guide recommends that FDA-approved medical therapies be considered in postmenopausal women and men age >= 50 years with a: * Hip or vertebral (clinical or morphometric) fracture * T-score of <=-2.5 at the spine or hip * Ten-year fracture probability by FRAX of >= 3% for hip fracture or >=20% for major osteoporotic fracture. People with diagnosed cases of osteoporosis or at high risk for fracture should have regular bone mineral density tests. For patients eligible for Medicare, routine testing is allowed once every 2 years. The testing frequency can be increased to one year for patients who have rapidly progressing disease, those who are receiving or discontinuing medical therapy to restore bone mass, or have additional risk factors. Dictated by: Leah Rayo M.D. on 09/04/2023 at 16:03 Approved by: Leah Rayo M.D. on 09/04/2023 at 16:05
== END ==
PROVIDERS: Family Provider Family Medicine; PCP Family Medicine; Referring Provider Specialist/Technologist Athletic Trainer; Visit Provider Specialist/Technologist Athletic Trainer
DX: M85.89 Other specified disorders of bone density and structure, multiple sites (principal); M05.9 Rheumatoid arthritis with rheumatoid factor, unspecified; D84.9 Immunodeficiency, unspecified; M06.30 Rheumatoid nodule, unspecified site; K52.9 Noninfective gastroenteritis and colitis, unspecified; M32.9 Systemic lupus erythematosus, unspecified
CPT/HCPCS: 77080

== ENCOUNTER 2023-09-10 21:34 | Emergency (ER) | payer OTHER, SELFPAY ==
[2023-09-10 21:37] VITALS: BP 146/95; PULSE 83; RESP 18; TEMP 36.4; O2SAT 99; BMI 29.2
--- NOTE | 2023-09-10 21:42 | EKG_ITS ---
[facility] [address] [place] [address] Test Date: 2023-09-10 Pat Name: Oanh Riddle Department: 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
--- NOTE | 2023-09-10 21:42 | DI.RAD.S_ITS ---
PROCEDURE: XR CHEST 1V INDICATIONS: chest pain TECHNIQUE: One view of the chest was acquired. COMPARISON: None. FINDINGS: Surgical changes and devices: None. Lungs and pleura: Lungs are clear. No pleural effusions or pneumothorax. Mediastinum: Mediastinal contours appear normal. Heart size is normal. Bones and chest wall: No suspicious bony lesions. Overlying soft tissues appear unremarkable. IMPRESSION: No acute cardiopulmonary pathology. Dictated by: Barry Fuentes M.D. on 09/10/2023 at 22:18 Approved by: Barry Fuentes M.D. on 09/10/2023 at 22:18
[2023-09-10] MEDS: ASPIRIN 81 MG CHEW TAB 324 MG PO (22:01)
[2023-09-10 22:15] VITALS: PULSE 79; RESP 15; O2SAT 91
[2023-09-10 22:16] VITALS: BP 131/81; PULSE 73; RESP 13; O2SAT 99
[2023-09-10 22:29] LABS: Prothrombin Time 11.7 SECONDS (9.4-12.5)
[2023-09-10 22:30] VITALS: BP 123/79; PULSE 74; RESP 14; O2SAT 96
[2023-09-10 22:32] LABS: PTT Partial Thromboplastin Tim 32 SECONDS (25.1-36.5)
[2023-09-10 22:34] LABS: Add Manual Diff / Slide Review NO; Alanine Aminotransferase 26 IU/L (<35); Albumin 4.7 g/dL (3.5-5.0); Albumin Globulin Ratio 1.3 (1.0-2.8); Alkaline Phosphatase 77 U/L (38-126); Aspartate Aminotransferase 26 IU/L (14-36); BUN Creatinine Ratio 22.8 (6-22); Basophils Absolute Auto 0 /uL (0-100); Basophils Percent Auto 0.3 % (0-2); Bilirubin Total 0.4 mg/dL (0.2-1.3); Blood Urea Nitrogen 21 mg/dL (7-17); Calcium 10.2 mg/dL (8.4-10.2); Carbon Dioxide 28 mmol/L (22-32); Chloride 105 mmol/L (98-107); Creatine Kinase 42 U/L (30-135); Eosinophils Absolute Auto 400 /uL (0-450); Eosinophils Percent Auto 3.3 % (2-4); Estimated Glomerular Filt Rate > 60 mL/min (>60); Globulin 3.7 g/dL (1.7-4.1); Glucose 89 mg/dL (70-100); HEMOLYSIS < 15 (0-50); Hematocrit 44.7 % (36-46); Lipase 147 U/L (23-300); Lymphocytes Absolute Auto 5700 /uL (1100-4500); Lymphocytes Percent Auto 48.1 % (25-40); Magnesium 2.3 mg/dL (1.6-2.3); Mean Corpuscular HGB Conc 33.6 % (30-36); Mean Corpuscular Hemoglobin 30.3 PG (26-34); Mean Corpuscular Volume 90.2 fL (80-100); Monocytes Absolute Auto 1000 /uL (0-900); Monocytes Percent Auto 8.2 % (3-14); Neutrophils Absolute Auto 4700 /uL (1500-7000); Neutrophils Percent Auto 40.1 % (50-75); Platelet Count 411 X10^3/uL (150-400); Potassium 3.8 mmol/L (3.4-5.1); Red Blood Cell Count 4.96 X10^6/uL (4.0-5.2); Red Cell Distribution Width 14.8 % (11.6-14.8); Sodium 138 mmol/L (137-145); Total Protein 8.4 g/dL (6.3-8.2); White Blood Cell Count 11.8 X10^3/uL (4.5-11.0)
[2023-09-10 22:46] LABS: Troponin I < 0.012 ng/mL (0.01-0.034)
[2023-09-10 23:00] VITALS: BP 121/70; PULSE 81; RESP 19; O2SAT 95
--- NOTE | 2023-09-10 23:12 | ED.CHESTPAIN ---
HPI - Chest Pain General Chief Complaint: Chest Pain Stated Complaint: chest pain Time Seen by Provider: 09/10/23 22:39 Source: patient Mode of arrival: Ambulatory History of Present Illness HPI narrative: 52-year-old female with history of rheumatoid arthritis on methotrexate, chronic steroids presents by private vehicle from home for several hours of left-sided chest pain. Patient states that many years ago she had a history of pericarditis in his feel similar. Worse with lying back, improved with sitting forward. Took ibuprofen at home without significant relief. Reports history of heart disease in her mother in her 70s, no other known family history of heart disease. Related Data Home Medications Medication Instructions Recorded Confirmed prednisone 5 mg tablet 5 mg PO DAILY 05/18/21 07/06/23 folic acid 1 mg tablet 1 mg PO DAILY 12/28/21 07/06/23 hydrocodone 5 mg-acetaminophen 325 1 tab PO BID PRN 05/09/22 07/06/23 mg tablet methotrexate sodium 25 mg/mL 25 mg IM QWEEK 07/06/22 07/06/23 injection solution risankizumab-rzaa 360 mg/2.4 mL ml SUBCUT 07/06/22 07/06/23 (150 mg/mL) subcut wearable injector (Skyrizi) syringe with needle 1 mL 25 gauge #50 ea 07/06/22 07/06/23 x 5/8 (BD Tuberculin Syringe) trazodone 100 mg tablet 100 mg PO BEDTIME 07/06/22 07/06/23 docusate sodium 100 mg capsule 100 mg PO BID 04/11/23 07/06/23 sulfasalazine 500 mg tablet 1,000 mg PO BID 04/11/23 07/06/23 metformin 500 mg tablet 500 mg PO BID PRN 06/06/23 07/06/23 Previous Rx's Medication Instructions Recorded fluticasone propionate 50 1 spray intranasal Q12H #16 grams 03/22/23 mcg/actuation nasal spray,suspension (Flonase Allergy Relief) paroxetine HCl 12.5 mg 12.5 mg PO DAILY #90 tabs 07/06/23 tablet,extended release 24 hr Allergies Allergy/AdvReac Type Severity Reaction Status Date / Time adalimumab [From Humira] Allergy Verified 07/06/23 11:40 metoclopramide [From Reglan] Allergy Verified 07/06/23 11:40 Penicillins Allergy Verified 07/06/23 11:40 prochlorperazine Allergy Verified 07/06/23 11:40 [From Compazine] hydromorphone [From Dilaudid] AdvReac Intermediate Vomiting Verified 09/10/23 21:44 Review of Systems Review of Systems Narrative: See HPI Patient History Medical History Thoracic back pain Neck pain Myofascial pain Insomnia Obstructive sleep apnea (adult) (pediatric) 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 Rheumatoid arthritis Lupus Crohns disease Surgical History S/P gastric sleeve procedure Family History Father No pertinent family history Social History household members: significant other Smoking Status: Never smoker alcohol intake: current Smoking Status: Never smoker alcohol intake frequency: holidays/special occasions only Substance Use Type: does not use Exam Initial Vital Signs Initial Vital Signs: Vital Signs Temperature 97.6 F 09/10/23 21:37 Pulse Rate 83 09/10/23 21:37 Respiratory Rate 18 09/10/23 21:37 Blood Pressure 146/95 H 09/10/23 21:37 Pulse Oximetry 99 09/10/23 21:37 Oxygen Delivery Method Room Air 09/10/23 21:37 Const: Awake, alert, no acute distress, nontoxic appearing Cardiac: regular rate, regular rhythm RESP: unlabored, clear bilaterally, no wheezing GI: Soft, nontender, nondistended, no rebound, no guarding MSK: Atraumatic, full range of motion, pulses equal Skin: Warm, Dry, intact, no rashes Neuro: AO x3, CN II-XII grossly intact, moves all extremities Course Orders Ordered: Discontinued Medications Al Hydrox/Mg Hydrox/Simethicone (Mag Hydrox/Alum/Simeth 30 Ml Udc) 30 ml PO NOW ONE Stop: 09/10/23 23:13 Last Admin: 09/10/23 23:27 Dose: 30 ml Documented By: MARILEE Aspirin (Aspirin 81 Mg Chew Tab) 324 mg PO NOW ONE Stop: 09/10/23 21:43 Last Admin: 09/10/23 22:01 Dose: 324 mg Documented By: MARILEE Ketorolac Tromethamine (Ketorolac 30 Mg/Ml Vial) 15 mg IV NOW ONE Stop: 09/10/23 23:13 Last Admin: 09/10/23 23:26 Dose: 15 mg Documented By: MARILEE Lidocaine HCl (Lidocaine Viscous 2% 15 Ml Solution) 15 ml PO NOW ONE Stop: 09/10/23 23:13 Last Admin: 09/10/23 23:27 Dose: 15 ml Documented By: SB Vital Signs Vital signs: Vital Signs - 8 hr 09/10/23 21:37 Temperature 97.6 F Pulse Rate 83 Respiratory Rate 18 Blood Pressure 146/95 H Pulse Oximetry 99 Oxygen Delivery Method Room Air MDM - Chest Pain Differential Diagnosis Differential diagnosis: Likely pneumothorax, atypical chest pain and costochondritis Lab Data 09/10/23 22:15 09/10/23 22:15 Labs: Lab Results 09/10/23 Range/Units 22:15 WBC 11.8 H (4.5-11.0) X10^3/uL RBC 4.96 (4.0-5.2) X10^6/uL Hgb 15.0 (12.0-16.0) g/dL Hct 44.7 (36-46) % MCV 90.2 (80-100) fL MCH 30.3 (26-34) PG MCHC 33.6 (30-36) % RDW 14.8 (11.6-14.8) % Plt Count 411 H (150-400) X10^3/uL Neut % (Auto) 40.1 L (50-75) % Lymph % (Auto) 48.1 H (25-40) % [place] % (Auto) 8.2 (3-14) % Eos % (Auto) 3.3 (2-4) % Baso % (Auto) 0.3 (0-2) % Neut # (Auto) 4700 (0407-9119) /uL Lymph # (Auto) 5700 H (3937-7197) /uL [place] # (Auto) 1000 H (0-900) /uL Eos # (Auto) 400 (0-450) /uL Baso # (Auto) 0 (0-100) /uL PT 11.7 (9.4-12.5) SECONDS INR 1.0 (0.9-1.3) APTT 32 (25.1-36.5) SECONDS Sodium 138 (137-145) mmol/L Potassium 3.8 (3.4-5.1) mmol/L Chloride 105 (98-107) mmol/L Carbon Dioxide 28 (22-32) mmol/L BUN 21 H (7-17) mg/dL Creatinine 0.92 (0.52-1.04) mg/dL Estimated GFR > 60 (>60) mL/min BUN/Creatinine Ratio 22.8 H (6-22) Glucose 89 (70-100) mg/dL Calcium 10.2 (8.4-10.2) mg/dL Magnesium 2.3 (1.6-2.3) mg/dL Total Bilirubin 0.4 (0.2-1.3) mg/dL AST 26 (14-36) IU/L ALT 26 (<35) IU/L Alkaline Phosphatase 77 (38-126) U/L Total Creatine Kinase 42 (30-135) U/L Troponin I < 0.012 (0.01-0.034) ng/mL Total Protein 8.4 H (6.3-8.2) g/dL Albumin 4.7 (3.5-5.0) g/dL Globulin 3.7 (1.7-4.1) g/dL Albumin/Globulin Ratio 1.3 (1.0-2.8) Lipase 147 (23-300) U/L Imaging Data Chest x-ray: Radiologist's Impression: PROCEDURE: XR CHEST 1V INDICATIONS: chest pain TECHNIQUE: One view of the chest was acquired. COMPARISON: None. FINDINGS: Surgical changes and devices: None. Lungs and pleura: Lungs are clear. No pleural effusions or pneumothorax. Mediastinum: Mediastinal contours appear normal. Heart size is normal. Bones and chest wall: No suspicious bony lesions. Overlying soft tissues appear unremarkable. IMPRESSION: No acute cardiopulmonary pathology. Dictated by: Barry Fuentes M.D. on 09/10/2023 at 22:18 Approved by: Barry Fuentes M.D. on 09/10/2023 at 22:18 ECG Data Interpretation: Normal sinus rhythm at 73 beats per minute. Normal NV, normal axis, no ST T wave changes, no STEMI MDM Narrative Medical decision making narrative: Well-appearing patient was several hours of chest pain. EKG is nonischemic. Patient states this feels similar to when she was diagnosed with pericarditis in her youth. Laboratory work shows no acute abnormalities. Troponin undetectable. A 2 hour troponin was ordered, however patient stated that her pain had since resolved after administration of Toradol and she did not want to wait for a repeat draw. She states that she will follow up with her primary care doctor, and she will discuss referral to a personal computer network engineer with her PCP. ED return precautions discussed at bedside. Discharge Plan Departure Patient Disposition: Home Clinical Impression: Chest pain Instructions: DI for Chest Pain Prescriptions: No Action fluticasone propionate [Flonase Allergy Relief] 50 mcg/actuation spray,suspension 1 spray intranasal Q12H Qty: 16 0RF Rx Instructions: administer into each nostril hydrocodone-acetaminophen 5-325 mg tablet 1 tab PO BID PRN paroxetine HCl 12.5 mg tablet extended release 24 hr 12.5 mg PO DAILY Qty: 90 1RF folic acid 1 mg Tablet 1 mg PO DAILY metformin 500 mg tablet 500 mg PO BID PRN prednisone 5 mg tablet 5 mg PO DAILY Skyrizi 360 mg/2.4 mL (150 mg/mL) wearable injector SUBCUT (DME) BD Tuberculin Syringe 1 mL 25 gauge x 5/8 syringe See Rx Instructions .ROUTE .MEDSUPPLY Qty: 50 Rx Instructions: As directed trazodone 100 mg tablet 100 mg PO BEDTIME methotrexate sodium 25 mg/mL solution 25 mg IM QWEEK sulfasalazine 500 mg tablet 1,000 mg PO BID docusate sodium 100 mg capsule 100 mg PO BID Referrals: Mike Linton MD [Primary Care Provider] - Stand Alone Forms: Patient Portal/API
[2023-09-10] MEDS: KETOROLAC 30 MG/ML VIAL 15 MG IV (23:26)
[2023-09-10] MEDS: LIDOCAINE VISCOUS 2% 15 ML SOLUTION PO (23:27)
[2023-09-10] MEDS: MAG HYDROX/ALUM/SIMETH 30 ML UDC PO (23:27)
[2023-09-10 23:30] VITALS: BP 127/89; PULSE 64; RESP 15; O2SAT 96
[2023-09-11] VITALS: BP 117/73; PULSE 59; RESP 19; O2SAT 93
[2023-09-11 00:24] VITALS: BP 117/73; PULSE 59; RESP 18; O2SAT 95
== END 2023-09-11 00:24 | disposition home or self-care (01) ==
PROVIDERS: Emergency Provider Emergency Medicine; Family Provider Family Medicine; PCP Family Medicine
DX: R07.9 Chest pain, unspecified (principal)
CPT/HCPCS: 36415; 71045; 80053; 82550; 83690; 83735; 84484; 85025; 85610; 85730; 93005; 96374; 99284; J1885

== ENCOUNTER → 2024-01-30 14:05 | Outpatient (CLI) | payer OTHER, SELFPAY | PROVIDERS: Family Provider Family Medicine; PCP Family Medicine; Referring Provider Internal Medicine; Visit Provider Internal Medicine | DX: Z23 Encounter for immunization (principal) | CPT/HCPCS: 90471; 90656 ==

== ENCOUNTER 2024-05-29 06:39 | Day surgery (SDC) | payer OTHER, SELFPAY ==
--- NOTE | 2024-05-29 | DI.RAD.S_ITS ---
PROCEDURE: XR CHEST 1V INDICATIONS: PORT A CATH PLACEMENT TECHNIQUE: One view of the chest was acquired. COMPARISON: [facility], CR, XR CHEST 1V, 09/10/2023, 22:02. FINDINGS: Surgical changes and devices: Right Port-A-Cath with the distal tip overlying the cavoatrial junction. Lungs and pleura: Low lung volumes without a focal lung consolidation. No pleural effusions or pneumothorax. Mediastinum: Mediastinal contours appear normal. Heart size is normal. Bones and chest wall: No suspicious bony lesions. Overlying soft tissues appear unremarkable. IMPRESSION: Right Port-A-Cath distal tip overlying the cavoatrial junction. Dictated by: Del Johnson M.D. on 05/29/2024 at 9:24 Approved by: Del Johnson M.D. on 05/29/2024 at 9:25
[2024-05-29 07:15] VITALS: BMI 30.5
--- NOTE | 2024-05-29 07:20 | SUR.OPER ---
Supine on padded OR bed, head on pillow, arms padded and tucked at sides, legs uncrossed, safety belt at thigh, tape over blanket over lower legs .
[2024-05-29] MEDS: LACTATED RINGERS 1,000 ML 42 ML IV (07:27)
[2024-05-29 07:33] VITALS: BP 135/90; PULSE 90; RESP 17; TEMP 36.4; O2SAT 99
[2024-05-29] MEDS: FAMOTIDINE 20 MG/2 ML VIAL IV (07:33)
--- NOTE | 2024-05-29 07:42 | PM.HP.IH.1 ---
History of Present Illness History of Present Illness Date Patient Seen: 05/29/24 Time Patient Seen: 07:42 Chief complaint: Port placement Narrative: 53 year old WF presents for port placement to resume infusion therapy for RA. Previously had a right-sided port, but was able to transition off infusion therapy for a while, but now is schedule to resume later this month. [facility] Medical History Thoracic back pain Neck pain Myofascial pain Insomnia Obstructive sleep apnea (adult) (pediatric) 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 Rheumatoid arthritis Lupus Crohns disease Surgical History History of removal of Port-a-Cath (07/09/21) S/P gastric sleeve procedure Family History Father No pertinent family history Social History household members: significant other Smoking Status: Never smoker alcohol intake: current Meds Home Medications and Allergies Home Medications Medication Instructions Recorded Confirmed Type prednisone 5 mg tablet 5 mg PO DAILY 05/18/21 05/29/24 History folic acid 1 mg tablet 1 mg PO DAILY 12/28/21 03/01/24 History hydrocodone 5 mg-acetaminophen 325 1 tab PO BID PRN Pain, Moderate 05/09/22 05/29/24 History mg tablet methotrexate sodium 25 mg/mL 25 mg IM QWEEK 07/06/22 05/29/24 History injection solution syringe with needle 1 mL 25 gauge #50 ea 07/06/22 03/01/24 History x 5/8 (BD Tuberculin Syringe) trazodone 100 mg tablet 100 mg PO BEDTIME 07/06/22 03/01/24 History certolizumab pegol 400 mg/2 mL mg SUBCUT .weekly 02/09/24 03/01/24 History (200 mg/mL x2) subcutaneous syringe kit (Cimzia) Allergies Allergy/AdvReac Type Severity Reaction Status Date / Time adalimumab [From Humira] Allergy Verified 05/29/24 07:12 metoclopramide [From Reglan] Allergy Verified 05/29/24 07:12 Penicillins Allergy Verified 05/29/24 07:12 prochlorperazine Allergy Verified 05/29/24 07:12 [From Compazine] hydromorphone [From Dilaudid] AdvReac Intermediate Vomiting Verified 05/29/24 07:12 Exam Vital Signs (past 8 hours): - 05/29/24 07:33 Temperature 97.6 F Pulse Rate 90 Respiratory Rate 17 Blood Pressure 135/90 Pulse Oximetry 99 Oxygen Delivery Method Room Air Oxygen Delivery Method Room Air Narrative Exam Narrative: Gen: NAD, sitting comfortably in bed, appears well HEENT: Sclera are anicteric, head is normocephalic and atraumatic, trachea is midline. CV: RRR, no JVD Resp: clear to auscultation bilaterally, equal chest wall movement bilaterally Abd: soft, nontender, normoactive bowel sounds Ext: no edema, full range of motion Neuro: Cranial nerves II-XII grossly intact, no focal deficits Skin: No erythema or ecchymosis Assessment & Plan Assessment and plan (1) Rheumatoid arthritis: Qualifiers: Rheumatoid arthritis location: unspecified site Rheumatoid factor presence: unspecified presence Qualified Code(s): M06.9 - Rheumatoid arthritis, unspecified Status: Acute (2) Crohns disease: Qualifiers: Gastrointestinal tract location: unspecified location Digestive disease complication type: unspecified complication Qualified Code(s): K50.919 - Crohn's disease, unspecified, with unspecified complications Status: Acute Assessment & Plan narrative: Risks, benefits and alternatives to port placement were discussed including but not limited to bleeding, infection, port malfunction, thrombosis, pneumothorax, need for port replacement. Patient understands and agrees to proceed. Time-Based Coding :: [TOTAL MINUTES] spent with patient and on the chart (including review of chart, obtaining history, exam, reviewing outside data, placing orders, documenting exam and treatment plan, and counseling patient) on [DATE]. PROFEE Face And Fill Packer Document charge(s): No
[2024-05-29] MEDS: BUPIVACAINE 0.5% W/ EPI (PF) 30 ML VIAL 10 ML INJ (08:24)
[2024-05-29] MEDS: LIDOCAINE 1% 20 ML INJ (08:25)
[2024-05-29 08:55] VITALS: BP 132/81; PULSE 63; RESP 14; TEMP 36.8; O2SAT 95
[2024-05-29 08:57] VITALS: BP 144/74; PULSE 104; RESP 14; O2SAT 97
--- NOTE | 2024-05-29 08:58 | PM.OP.1 ---
Operative Date/Time/Diagnoses Date of procedure: 05/29/24 Time of procedure: 08:58 Pre-op diagnosis: Rheumatoid arthritis, need for IV access Post-op diagnosis: same Procedure & Clinicians Procedure: 1. Ultrasound-guided needle placement right internal jugular vein 2. Right internal jugular tunneled subcutaneous port placement 3. Fluoroscopic guidance and supervision of port placement Same procedure as scheduled: Yes Indications: Need for infusion therapy for rheumatoid arthritis Surgeon: Kevin Mandel Click Yes if Unassisted: Yes Anesthesia Type: General Operative Notes Findings: No pneumothorax, cath tip of the atriocaval junction. Good flush and return. Closure Type: primary Specimen(s): none sent Prosthetic devices, grafts, tissues, transplants, or devices: Bard port Estimated Blood Loss (mL): 15 Procedure in detail: Patient was brought to the operating room suite. Time-out was performed. Patient was placed in the supine position with the arms tucked. Right neck was prepped and draped. Patient was placed in Trendelenburg position. Ultrasound confirmed a compressible right internal jugular vein. Good blood return was obtained on the 1st stick. Wire was passed under fluoroscopic guidance to the atriocaval junction. The pre-existing right chest wall scar was incised and a subcutaneous pocket was carried down to the clavipectoral fascia. The port was tunneled from the pocket to the right IJ insertion site. 3-0 Vicryl was used to affix the port to the clavipectoral fascia on the medial and lateral sides of the port. Fluoroscopic guidance was used to approximate the distance of the atrial caval junction which was about 18 cm. Introducer sheath was placed and wire removed. The catheter was cut at 18 cm and passed through the introducer sheath. Fluoroscopic guidance showed catheter tip in good position without ectopy. The catheter had good venous return and was flushed with 3 mL of 500 units/mL heparin. Skin was sutured with 4-0 Monocryl and Dermabond. Patient tolerated the procedure well was transported to PACU in stable condition postoperative chest x-ray showed the catheter in good position without evidence of pneumothorax. Complications: none Post-operative Condition: stable Disposition: PACU Plan for aftercare: Home. Okay to use catheter
[2024-05-29 09:02] VITALS: BP 121/78; PULSE 90; RESP 14; TEMP 36.7; O2SAT 96
[2024-05-29 09:07] VITALS: BP 130/79; PULSE 86; RESP 18; O2SAT 94
[2024-05-29] MEDS: ACETAMINOPHEN IV 1,000 MG/100 ML VIAL 400 MG IV (09:09)
[2024-05-29 09:14] VITALS: BP 118/76; PULSE 84; RESP 17; O2SAT 94
== END 2024-05-29 09:42 | disposition home or self-care (01) ==
PROVIDERS: Family Provider Family Medicine; PCP Family Medicine; Referring Provider Surgery; Visit Provider Surgery
PROC: (CPT 36561; principal; 2024-05-29 07:45)
DX: Z45.2 Encounter for adjustment and management of vascular access device (principal); M06.9 Rheumatoid arthritis, unspecified
CPT/HCPCS: 36561; 71045; 76000; C1788; J0134; J1100; J2250; J2405; J2704; J3010

== ENCOUNTER 2024-06-18 17:00 | Outpatient (RCR) | payer OTHER, SELFPAY ==
--- NOTE | 2024-05-07 17:45 | PT.OIE ---
Current Diagnoses Unilateral primary osteoarthritis, left knee (05/07/24) Other tear of medial meniscus, current injury, left knee, initial encounter (05/07/24) Other specified postprocedural states (05/07/24) Past Medical History (Last Updated 03/01/24 @ 14:46 by Ted Washington MD) Crohns disease DJD of AC (acromioclavicular) joint Insomnia Left knee DJD Lupus Myofascial pain Neck pain Obstructive sleep apnea (adult) (pediatric) Rheumatoid arthritis Thoracic back pain Past Surgical History (Last Reviewed 09/11/23 @ 23:41 by Gail Kwong MD) S/P gastric sleeve procedure Visit Care Team Role Provider Type Mike Linton MD Family Provider Non-Staff Primary Care Provider Specialty: Family Practice Address: [address] [place] [address], [id number] Email: Kg Merino DO Attending Provider Non-Staff Referring Provider Specialty: Orthopedic Surgery Address: [address] [place] [address], [address] Email: Physical Therapy Initial Evaluation PT-OP-A Visit Information Start: 05/07/24 17:40 Freq: Status: Active Protocol: Document 05/07/24 17:00 DCW (Rec: 05/07/24 17:45 DCW [id number]) Out-Patient Physical Therapy Visit Information Visit Information Visit Type Initial Evaluation Visit Start Time 17:00 Visit Stop Time 17:40 Visit Number 1 Number of MANUAL ARTS TEACHER Visits 0 Evaluation Information Evaluation Date 05/07/24 PT-OP-B Current Condition Start: 05/07/24 17:40 Freq: Status: Active Protocol: Document 05/07/24 17:00 DCW (Rec: 05/08/24 09:39 DCW [id number]) Current Condition History of Current Condition Onset Date Two years Current Complaints Meniscus injury, popping in medial knee, knee locking up History of Current Condition Pt is a 53 year old female presenting two years s/p left meniscus arthroscopy. Pt notes initial injury was an insidious onset, felt good for probably two months after surgery, and then began worsening again. Pt notes that in the last six months, symptoms have progressed quite a bit, she frequently experiences her knee getting stuck, and she needs to put it in extreme flexion and add varus stress in order to unlock it. Struggles ascending stairs, feels like her lateral knee is going to snap. Over the past few months, has also begun to notice a popping of a tendon across her medial knee with extension. Prior Treatments and Tests MRI, per patient, show meniscus and degenerative changes since surgery two years ago PT-OP-C Subjective Start: 05/07/24 17:40 Freq: Status: Active Protocol: Document 05/07/24 17:00 DCW (Rec: 05/07/24 17:45 DCW [id number]) OP-PT Subjective Patient Comments Patient Comments I've been putting off coming ot PT for two years. I associate PT with pain, and I really don't like pain. Patient Reported Progress Worse Patient Questionnaires Lower Extremity Functional Scale LEFS Score 55/80 = 68.75% LEFS Impairment 20 to 39% Impaired (Score 48- 62) PT-OP-F Manual Assessment Start: 05/07/24 17:40 Freq: Status: Active Protocol: Document 05/07/24 17:00 DCW (Rec: 05/07/24 17:50 DCW [id number]) Manual Assessments Soft Tissue Assessment Soft Tissue Mobility Assessment Tenderness to palpation 3/4: Wincing and withdraw along left knee joint line ( anteriomedial and anteriolateral), left pes anserine. Notable atrophy at left VMO. Snapping of left gracilis across tibial condyle very evident with left knee extension. PT-OP-G Mobility & Gait Start: 05/07/24 17:40 Freq: Status: Active Protocol: Document 05/07/24 17:00 DCW (Rec: 05/07/24 17:50 DCW [id number]) OP Gait Assessment Gait Gait Assistance Required: Independent Assistive Devices Assistive Device None Comments Gait Comments Antalgic L gait pattern with mild left toe out PT-OP-L Special Tests Start: 05/07/24 17:50 Freq: Status: Active Protocol: Document 05/07/24 17:00 DCW (Rec: 05/07/24 17:52 DCW [id number]) Special Tests Knee Special Tests Varus- 25 Degrees Test Results Negative Valgus- 25 Degrees Test Results Negative Posterior Draw Test Results Negative Patellar Grind Test Test Results Positive Left Patella Tap Test Results Positive Left Price Chondromalacia Test Results Positive Left Anterior Draw Test Results Negative PT-OP-M Strength Start: 05/07/24 17:40 Freq: Status: Active Protocol: Document 05/07/24 17:00 DCW (Rec: 05/07/24 17:50 DCW [id number]) Knee Strength Knee Manual Muscle Testing Right Flexion (S2) 4+ Good+ Extension (L3) 4+ Good+ Left Flexion (S2) 4+ Good+ Extension (L3) 4- Good- PT-OP-Q Treatments Start: 05/07/24 17:40 Freq: Status: Active Protocol: Document 05/07/24 17:00 DCW (Rec: 05/07/24 17:45 DCW [id number]) Therapeutic Exercises Supine Exercises Bridging Supine Exercise Name Bridging /c Adductor ball squeeze Side left SLR Supine Exercise Name SLR /c ER Side left Sidelying Exercises SLR Sidelying Exercise Name Adduction SLR Side right PT-OP-T Assessment and Plan Start: 05/07/24 17:40 Freq: Status: Active Protocol: Document 05/07/24 17:00 DCW (Rec: 05/08/24 10:20 DCW [id number]) Physical Therapy Assessment Rehab Potential Rehabilitation Potential Fair Evaluation Complexity Number of Personal Factors/Comorbidities 3 or More Number of Body Systems Impaired 4 or More Clinical Presentation at Evaluation Unstable Impairments Impairments Activity Tolerance,Functional Activities,Functional Mobility ,Gait,Pain,Soft Tissue Mobility,Strength,Tone Goals Three Impairment Pt has gracilis/pes anserine snapping 80% of the time with full L extension Radiologic Therapist Goal (LTG) Pt to decrease frequency of gracilis/pes anserine snapping to 40% of the time performing full left knee extension in order to decrease pain and inflammation in left medial knee LTG Duration 07/05/24 Two Impairment Pt exhibits left VMO atrophy Snf Goal (LTG) Pt to present with VMO muscle mass left equal to right in order to improve patellar tracking and improve ability to ascend stairs LTG Duration 07/05/24 One Impairment Pt does not have an appropriate home exercise program Short Term Goal (STG) Pt to be independent and compliant with an appropriate HEP STG Duration 06/04/24 Assessment Summary Assessment Pt presents with signs and symptoms consistent with referring diagnosis. Pt exhibits patellofemoral tracking dysfunction, gracilis /pes anserine snapping, and continuing meniscus issues, which result in her left knee locking in place. Pt displays VMO atrophy, and ambulates with excessive toe out on left side. Pt should benefit from skilled therapeutic intervention focusing on VMO/ quad strengthening, STM, joint mobs, increased joint stability, and improving activity tolerance. Physical Therapy Plan Frequency and Duration Frequency of Treatment 2x/Week Plan of Care Start Date 05/07/24 Plan of Care End Date 07/05/24 Therapeutic Interventions Therapeutic Interventions Balance Training,Gait Training ,Home Exercise Program,Joint Mobilizations,Manual Therapy, Neuromuscular Re-education, Patient/Caregiver Education, Self-Care/Home Management,Soft Tissue Mobilization,Taping, Therapeutic Activities, Therapeutic Exercises Modalities Cold Pack/Ice Massage,Electric Stimulation,Hot Packs, Ultrasound Next Visit Focus/Plan Next Note Type Treatment Note Next Visit Plan Quad strengthening, STM, stretching
--- NOTE | 2024-05-07 17:45 | PT.OPPOC ---
Physical, Occupational & Speech Therapy At [facility] Current Diagnoses Unilateral primary osteoarthritis, left knee (05/07/24) Other tear of medial meniscus, current injury, left knee, initial encounter (05/07/24) Other specified postprocedural states (05/07/24) Visit Care Team Role Provider Type Mike Linton MD Family Provider Non-Staff Primary Care Provider Specialty: Family Practice Address: [address] [place] [address], [id number] Email: Kg Merino DO Attending Provider Non-Staff Referring Provider Specialty: Orthopedic Surgery Address: [facility] [place], [address] Email: Plan Of Care PT-OP-B Current Condition Start: 05/07/24 17:40 Freq: Status: Active Protocol: Document 05/07/24 17:00 DCW (Rec: 05/08/24 09:39 DCW [id number]) Current Condition History of Current Condition Onset Date Two years Current Complaints Meniscus injury, popping in medial knee, knee locking up History of Current Condition Pt is a 53 year old female presenting two years s/p left meniscus arthroscopy. Pt notes initial injury was an insidious onset, felt good for probably two months after surgery, and then began worsening again. Pt notes that in the last six months, symptoms have progressed quite a bit, she frequently experiences her knee getting stuck, and she needs to put it in extreme flexion and add varus stress in order to unlock it. Struggles ascending stairs, feels like her lateral knee is going to snap. Over the past few months, has also begun to notice a popping of a tendon across her medial knee with extension. Prior Treatments and Tests MRI, per patient, show meniscus and degenerative changes since surgery two years ago PT-OP-T Assessment and Plan Start: 05/07/24 17:40 Freq: Status: Active Protocol: Document 05/07/24 17:00 DCW (Rec: 05/08/24 10:20 DCW [id number]) Physical Therapy Assessment Rehab Potential Rehabilitation Potential Fair Evaluation Complexity Number of Personal Factors/Comorbidities 3 or More Number of Body Systems Impaired 4 or More Clinical Presentation at Evaluation Unstable Impairments Impairments Activity Tolerance,Functional Activities,Functional Mobility ,Gait,Pain,Soft Tissue Mobility,Strength,Tone Goals Three Impairment Pt has gracilis/pes anserine snapping 80% of the time with full L extension Penitentiary Goal (LTG) Pt to decrease frequency of gracilis/pes anserine snapping to 40% of the time performing full left knee extension in order to decrease pain and inflammation in left medial knee LTG Duration 07/05/24 Two Impairment Pt exhibits left VMO atrophy Animal Laboratory Helper Goal (LTG) Pt to present with VMO muscle mass left equal to right in order to improve patellar tracking and improve ability to ascend stairs LTG Duration 07/05/24 One Impairment Pt does not have an appropriate home exercise program Short Term Goal (STG) Pt to be independent and compliant with an appropriate HEP STG Duration 06/04/24 Assessment Summary Assessment Pt presents with signs and symptoms consistent with referring diagnosis. Pt exhibits patellofemoral tracking dysfunction, gracilis /pes anserine snapping, and continuing meniscus issues, which result in her left knee locking in place. Pt displays VMO atrophy, and ambulates with excessive toe out on left side. Pt should benefit from skilled therapeutic intervention focusing on VMO/ quad strengthening, STM, joint mobs, increased joint stability, and improving activity tolerance. Physical Therapy Plan Frequency and Duration Frequency of Treatment 2x/Week Plan of Care Start Date 05/07/24 Plan of Care End Date 07/05/24 Therapeutic Interventions Therapeutic Interventions Balance Training,Gait Training ,Home Exercise Program,Joint Mobilizations,Manual Therapy, Neuromuscular Re-education, Patient/Caregiver Education, Self-Care/Home Management,Soft Tissue Mobilization,Taping, Therapeutic Activities, Therapeutic Exercises Modalities Cold Pack/Ice Massage,Electric Stimulation,Hot Packs, Ultrasound Next Visit Focus/Plan Next Note Type Treatment Note Next Visit Plan Quad strengthening, STM, stretching Plan of Care Dates Plan of Care Start Date 05/07/24 Plan of Care End Date 07/05/24 Electronically Signed by: Fracisco Washburn, PT 05/08/24 1025 If you are in agreement with this Plan of Care, please return a signed and dated copy. I have reviewed this Plan of Care and certify that the skilled therapy services above are required to meet the patient?s needs. Physician Signature Date Printed Name and Credentials Clinical Instructor Signature Printed Name and Credentials
--- NOTE | 2024-05-09 17:49 | PT.OTN ---
Current Diagnoses Unilateral primary osteoarthritis, left knee (05/09/24) Other tear of medial meniscus, current injury, left knee, initial encounter (05/09/24) Other specified postprocedural states (05/09/24) Physical Therapy Treatment Note PT-OP-A Visit Information Start: 05/07/24 17:40 Freq: Status: Active Protocol: Document 05/09/24 17:00 DCW (Rec: 05/09/24 17:49 DCW [id number]) Out-Patient Physical Therapy Visit Information Visit Information Visit Type Treatment Note Visit Start Time 17:00 Visit Stop Time 17:45 Visit Number 2 Number of CLOUD ENGINEER Visits 0 Evaluation Information Evaluation Date 05/07/24 PT-OP-B Current Condition Start: 05/07/24 17:40 Freq: Status: Active Protocol: Document 05/07/24 17:00 DCW (Rec: 05/08/24 09:39 DCW [id number]) Current Condition History of Current Condition Onset Date Two years Current Complaints Meniscus injury, popping in medial knee, knee locking up History of Current Condition Pt is a 53 year old female presenting two years s/p left meniscus arthroscopy. Pt notes initial injury was an insidious onset, felt good for probably two months after surgery, and then began worsening again. Pt notes that in the last six months, symptoms have progressed quite a bit, she frequently experiences her knee getting stuck, and she needs to put it in extreme flexion and add varus stress in order to unlock it. Struggles ascending stairs, feels like her lateral knee is going to snap. Over the past few months, has also begun to notice a popping of a tendon across her medial knee with extension. Prior Treatments and Tests MRI, per patient, show meniscus and degenerative changes since surgery two years ago PT-OP-C Subjective Start: 05/07/24 17:40 Freq: Status: Active Protocol: Document 05/09/24 17:00 DCW (Rec: 05/09/24 17:49 DCW [id number]) OP-PT Subjective Patient Comments Patient Comments Pt notes she had some muscle soreness following her initial eval, which shows how weak I am, because that wasn't a lot of work. PT-OP-F Manual Assessment Start: 05/07/24 17:40 Freq: Status: Active Protocol: Document 05/07/24 17:00 DCW (Rec: 05/07/24 17:50 DCW [id number]) Manual Assessments Soft Tissue Assessment Soft Tissue Mobility Assessment Tenderness to palpation 3/4: Wincing and withdraw along left knee joint line ( anteriomedial and anteriolateral), left pes anserine. Notable atrophy at left VMO. Snapping of left gracilis across tibial condyle very evident with left knee extension. PT-OP-G Mobility & Gait Start: 05/07/24 17:40 Freq: Status: Active Protocol: Document 05/07/24 17:00 DCW (Rec: 05/07/24 17:50 DCW [id number]) OP Gait Assessment Gait Gait Assistance Required: Independent Assistive Devices Assistive Device None Comments Gait Comments Antalgic L gait pattern with mild left toe out PT-OP-L Special Tests Start: 05/07/24 17:50 Freq: Status: Active Protocol: Document 05/07/24 17:00 DCW (Rec: 05/07/24 17:52 DCW [id number]) Special Tests Knee Special Tests Varus- 25 Degrees Test Results Negative Valgus- 25 Degrees Test Results Negative Posterior Draw Test Results Negative Patellar Grind Test Test Results Positive Left Patella Tap Test Results Positive Left Price Chondromalacia Test Results Positive Left Anterior Draw Test Results Negative PT-OP-M Strength Start: 05/07/24 17:40 Freq: Status: Active Protocol: Document 05/07/24 17:00 DCW (Rec: 05/07/24 17:50 DCW [id number]) Knee Strength Knee Manual Muscle Testing Right Flexion (S2) 4+ Good+ Extension (L3) 4+ Good+ Left Flexion (S2) 4+ Good+ Extension (L3) 4- Good- PT-OP-Q Treatments Start: 05/07/24 17:40 Freq: Status: Active Protocol: Document 05/09/24 17:00 DCW (Rec: 05/09/24 17:49 DCW [id number]) Cardio Equipment Recumbent Stepper (Sci-Fit) Duration (Minutes) 6 Resistance 4 Seat Position 11 Gym Equipment Shuttle Recovery Unilateral Squats Resistance 37# Bilateral Squats Resistance 75# Therapeutic Exercises Standing Exercises Pallof Press Standing Exercise Name Pallof Press Side bilateral Resistance Green Manual Therapy Treatment Joint Mobilizations Patella Joint Patella mobility Direction Inf/Sup, Med/Lat Grade II Body Position Long Sit Taping Patella Body Location R Patella Treatment Focus Medial patellar pull Type of Tape Kinesio Tape Neuro Re-Education Treatment Balance Activities Air Disc Details Mini Lunge Surface Large blue mini lunge Equipment // bars Tilt Board Details Tilt Board Comments DF/PF, Lateral PT-OP-T Assessment and Plan Start: 05/07/24 17:40 Freq: Status: Active Protocol: Document 05/09/24 17:00 DCW (Rec: 05/09/24 17:49 DCW [id number]) Physical Therapy Assessment Impairments Impairments Activity Tolerance,Functional Activities,Functional Mobility ,Gait,Pain,Soft Tissue Mobility,Strength,Tone Goals Three Impairment Pt has gracilis/pes anserine snapping 80% of the time with full L extension [facility] Goal (LTG) Pt to decrease frequency of gracilis/pes anserine snapping to 40% of the time performing full left knee extension in order to decrease pain and inflammation in left medial knee LTG Duration 07/05/24 Two Impairment Pt exhibits left VMO atrophy [employer] Waste Facility Supervisor Goal (LTG) Pt to present with VMO muscle mass left equal to right in order to improve patellar tracking and improve ability to ascend stairs LTG Duration 07/05/24 One Impairment Pt does not have an appropriate home exercise program Short Term Goal (STG) Pt to be independent and compliant with an appropriate HEP STG Duration 06/04/24 Assessment Summary Assessment Able to complete activities today without experiencing any pes anserine popping, notes however it typically occurs in open chain activities. Notes significant fatigue in muscles by end of session, but no increase in pain. Trial of k- tape to help with patellar tracking. Physical Therapy Plan Frequency and Duration Frequency of Treatment 2x/Week Plan of Care Start Date 05/07/24 Plan of Care End Date 07/05/24 Therapeutic Interventions Therapeutic Interventions Balance Training,Gait Training ,Home Exercise Program,Joint Mobilizations,Manual Therapy, Neuromuscular Re-education, Patient/Caregiver Education, Self-Care/Home Management,Soft Tissue Mobilization,Taping, Therapeutic Activities, Therapeutic Exercises Modalities Cold Pack/Ice Massage,Electric Stimulation,Hot Packs, Ultrasound Next Visit Focus/Plan Next Note Type Treatment Note Next Visit Plan Quad strengthening, STM, stretching
--- NOTE | 2024-05-27 17:27 | PT.OTN ---
Current Diagnoses Unilateral primary osteoarthritis, left knee (05/27/24) Other tear of medial meniscus, current injury, left knee, initial encounter (05/27/24) Other specified postprocedural states (05/27/24) Physical Therapy Treatment Note PT-OP-A Visit Information Start: 05/07/24 17:40 Freq: Status: Active Protocol: Document 05/27/24 17:00 DCW (Rec: 05/27/24 17:27 DCW [id number]) Out-Patient Physical Therapy Visit Information Visit Information Visit Type Treatment Note Visit Start Time 17:00 Visit Stop Time : Visit Number 3 Number of PLANT SPRAYER Visits 0 Evaluation Information Evaluation Date 05/07/24 PT-OP-B Current Condition Start: 05/07/24 17:40 Freq: Status: Active Protocol: Document 05/07/24 17:00 DCW (Rec: 05/08/24 09:39 DCW [id number]) Current Condition History of Current Condition Onset Date Two years Current Complaints Meniscus injury, popping in medial knee, knee locking up History of Current Condition Pt is a 53 year old female presenting two years s/p left meniscus arthroscopy. Pt notes initial injury was an insidious onset, felt good for probably two months after surgery, and then began worsening again. Pt notes that in the last six months, symptoms have progressed quite a bit, she frequently experiences her knee getting stuck, and she needs to put it in extreme flexion and add varus stress in order to unlock it. Struggles ascending stairs, feels like her lateral knee is going to snap. Over the past few months, has also begun to notice a popping of a tendon across her medial knee with extension. Prior Treatments and Tests MRI, per patient, show meniscus and degenerative changes since surgery two years ago PT-OP-C Subjective Start: 05/07/24 17:40 Freq: Status: Active Protocol: Document 05/27/24 17:00 DCW (Rec: 05/27/24 17:26 DCW [id number]) OP-PT Subjective Patient Comments Patient Comments Pt notes her knee popped three times today, quite painful, notes it feels pretty swollen. PT-OP-F Manual Assessment Start: 05/07/24 17:40 Freq: Status: Active Protocol: Document 05/07/24 17:00 DCW (Rec: 05/07/24 17:50 DCW [id number]) Manual Assessments Soft Tissue Assessment Soft Tissue Mobility Assessment Tenderness to palpation 3/4: Wincing and withdraw along left knee joint line ( anteriomedial and anteriolateral), left pes anserine. Notable atrophy at left VMO. Snapping of left gracilis across tibial condyle very evident with left knee extension. PT-OP-G Mobility & Gait Start: 05/07/24 17:40 Freq: Status: Active Protocol: Document 05/07/24 17:00 DCW (Rec: 05/07/24 17:50 DCW [id number]) OP Gait Assessment Gait Gait Assistance Required: Independent Assistive Devices Assistive Device None Comments Gait Comments Antalgic L gait pattern with mild left toe out PT-OP-L Special Tests Start: 05/07/24 17:50 Freq: Status: Active Protocol: Document 05/07/24 17:00 DCW (Rec: 05/07/24 17:52 DCW [id number]) Special Tests Knee Special Tests Varus- 25 Degrees Test Results Negative Valgus- 25 Degrees Test Results Negative Posterior Draw Test Results Negative Patellar Grind Test Test Results Positive Left Patella Tap Test Results Positive Left Price Chondromalacia Test Results Positive Left Anterior Draw Test Results Negative PT-OP-M Strength Start: 05/07/24 17:40 Freq: Status: Active Protocol: Document 05/07/24 17:00 DCW (Rec: 05/07/24 17:50 DCW [id number]) Knee Strength Knee Manual Muscle Testing Right Flexion (S2) 4+ Good+ Extension (L3) 4+ Good+ Left Flexion (S2) 4+ Good+ Extension (L3) 4- Good- PT-OP-Q Treatments Start: 05/07/24 17:40 Freq: Status: Active Protocol: Document 05/27/24 17:00 DCW (Rec: 05/27/24 17:26 DCW [id number]) Gym Equipment Shuttle Recovery Unilateral Squats Resistance 37# Bilateral Squats Resistance 75# Therapeutic Exercises Standing Exercises TKE Standing Exercise Name TKE Side left Resistance Lv 3 Other Exercises Step-up Other Exercise Name Step-ups Side left Equipment Used 4 step Manual Therapy Treatment Joint Mobilizations Patella Joint Patella mobility Direction Inf/Sup, Med/Lat Grade II Body Position Long Sit PT-OP-T Assessment and Plan Start: 05/07/24 17:40 Freq: Status: Active Protocol: Document 05/27/24 17:00 [facility] (Rec: 05/27/24 17:26 [facility] [id number]) Physical Therapy Assessment Impairments Impairments Activity Tolerance,Functional Activities,Functional Mobility ,Gait,Pain,Soft Tissue Mobility,Strength,Tone Goals Three Impairment Pt has gracilis/pes anserine snapping 80% of the time with full L extension Skilled Nursing Goal (LTG) Pt to decrease frequency of gracilis/pes anserine snapping to 40% of the time performing full left knee extension in order to decrease pain and inflammation in left medial knee LTG Duration 07/05/24 Two Impairment Pt exhibits left VMO atrophy Drink Box Mechanic Goal (LTG) Pt to present with VMO muscle mass left equal to right in order to improve patellar tracking and improve ability to ascend stairs LTG Duration 07/05/24 One Impairment Pt does not have an appropriate home exercise program Short Term Goal (STG) Pt to be independent and compliant with an appropriate HEP STG Duration 06/04/24 Assessment Summary Assessment Pt having significantly more pain today, experienced difficulty with most activities. Experienced multiple instances of gracillis snapping with sit<-> stand. Stopped early today due to general discomfort. Pt refused ice, noted she would perform at home. Physical Therapy Plan Frequency and Duration Frequency of Treatment 2x/Week Plan of Care Start Date 05/07/24 Plan of Care End Date 07/05/24 Therapeutic Interventions Therapeutic Interventions Balance Training,Gait Training ,Home Exercise Program,Joint Mobilizations,Manual Therapy, Neuromuscular Re-education, Patient/Caregiver Education, Self-Care/Home Management,Soft Tissue Mobilization,Taping, Therapeutic Activities, Therapeutic Exercises Modalities Cold Pack/Ice Massage,Electric Stimulation,Hot Packs, Ultrasound Next Visit Focus/Plan Next Note Type Treatment Note Next Visit Plan Quad strengthening, STM, stretching
--- NOTE | 2024-06-18 17:52 | PT.OTN ---
Current Diagnoses Unilateral primary osteoarthritis, left knee (06/18/24) Other tear of medial meniscus, current injury, left knee, initial encounter (06/18/24) Other specified postprocedural states (06/18/24) Physical Therapy Treatment Note PT-OP-A Visit Information Start: 05/07/24 17:40 Freq: Status: Active Protocol: Document 06/18/24 17:00 DCW (Rec: 06/18/24 17:52 DCW [id number]) Out-Patient Physical Therapy Visit Information Visit Information Visit Type Treatment Note Visit Start Time 17:00 Visit Stop Time 17:45 Visit Number 4 Number of JOINT RUNNER Visits 0 Evaluation Information Evaluation Date 05/07/24 PT-OP-B Current Condition Start: 05/07/24 17:40 Freq: Status: Active Protocol: Document 05/07/24 17:00 DCW (Rec: 05/08/24 09:39 DCW [id number]) Current Condition History of Current Condition Onset Date Two years Current Complaints Meniscus injury, popping in medial knee, knee locking up History of Current Condition Pt is a 53 year old female presenting two years s/p left meniscus arthroscopy. Pt notes initial injury was an insidious onset, felt good for probably two months after surgery, and then began worsening again. Pt notes that in the last six months, symptoms have progressed quite a bit, she frequently experiences her knee getting stuck, and she needs to put it in extreme flexion and add varus stress in order to unlock it. Struggles ascending stairs, feels like her lateral knee is going to snap. Over the past few months, has also begun to notice a popping of a tendon across her medial knee with extension. Prior Treatments and Tests MRI, per patient, show meniscus and degenerative changes since surgery two years ago PT-OP-C Subjective Start: 05/07/24 17:40 Freq: Status: Active Protocol: Document 06/18/24 17:00 DCW (Rec: 06/18/24 17:52 DCW [id number]) OP-PT Subjective Patient Comments Patient Comments Pt feeling better than last time, but still experiencing a lot of popping in her knee. PT-OP-F Manual Assessment Start: 05/07/24 17:40 Freq: Status: Active Protocol: Document 05/07/24 17:00 DCW (Rec: 05/07/24 17:50 DCW [id number]) Manual Assessments Soft Tissue Assessment Soft Tissue Mobility Assessment Tenderness to palpation 3/4: Wincing and withdraw along left knee joint line ( anteriomedial and anteriolateral), left pes anserine. Notable atrophy at left VMO. Snapping of left gracilis across tibial condyle very evident with left knee extension. PT-OP-G Mobility & Gait Start: 05/07/24 17:40 Freq: Status: Active Protocol: Document 05/07/24 17:00 DCW (Rec: 05/07/24 17:50 DCW [id number]) OP Gait Assessment Gait Gait Assistance Required: Independent Assistive Devices Assistive Device None Comments Gait Comments Antalgic L gait pattern with mild left toe out PT-OP-L Special Tests Start: 05/07/24 17:50 Freq: Status: Active Protocol: Document 05/07/24 17:00 DCW (Rec: 05/07/24 17:52 DCW [id number]) Special Tests Knee Special Tests Varus- 25 Degrees Test Results Negative Valgus- 25 Degrees Test Results Negative Posterior Draw Test Results Negative Patellar Grind Test Test Results Positive Left Patella Tap Test Results Positive Left Price Chondromalacia Test Results Positive Left Anterior Draw Test Results Negative PT-OP-M Strength Start: 05/07/24 17:40 Freq: Status: Active Protocol: Document 05/07/24 17:00 DCW (Rec: 05/07/24 17:50 DCW [id number]) Knee Strength Knee Manual Muscle Testing Right Flexion (S2) 4+ Good+ Extension (L3) 4+ Good+ Left Flexion (S2) 4+ Good+ Extension (L3) 4- Good- PT-OP-Q Treatments Start: 05/07/24 17:40 Freq: Status: Active Protocol: Document 06/18/24 17:00 DCW (Rec: 06/18/24 17:52 DCW [id number]) Gym Equipment Shuttle Recovery Unilateral Squats Resistance 37# Bilateral Squats Resistance 75# Shuttle Balance Red Details WBOS, Staggered Therapeutic Exercises Sitting Exercises Piriformis Sitting Exercise Name Seated figure-4 Other Exercises Sliders Other Exercise Name Sliders - Abduction Side bilateral Equipment Used Furniture sliders Manual Therapy Treatment Joint Mobilizations Patella Joint Patella mobility Direction Inf/Sup, Med/Lat Grade II Body Position Long Sit Neuro Re-Education Treatment Balance Activities Air Disc Details BOSU Lunge Surface Blue BOSU PT-OP-T Assessment and Plan Start: 05/07/24 17:40 Freq: Status: Active Protocol: Document 06/18/24 17:00 DCW (Rec: 06/18/24 17:52 DCW [id number]) Physical Therapy Assessment Impairments Impairments Activity Tolerance,Functional Activities,Functional Mobility ,Gait,Pain,Soft Tissue Mobility,Strength,Tone Goals Three Impairment Pt has gracilis/pes anserine snapping 80% of the time with full L extension Half-Way Goal (LTG) Pt to decrease frequency of gracilis/pes anserine snapping to 40% of the time performing full left knee extension in order to decrease pain and inflammation in left medial knee LTG Duration 07/05/24 Two Impairment Pt exhibits left VMO atrophy Foundry Finisher Goal (LTG) Pt to present with VMO muscle mass left equal to right in order to improve patellar tracking and improve ability to ascend stairs LTG Duration 07/05/24 One Impairment Pt does not have an appropriate home exercise program Short Term Goal (STG) Pt to be independent and compliant with an appropriate HEP STG Duration 06/04/24 Assessment Summary Assessment Pt feeling much better today, able to fully participate in therapy. Does continue to exhibit increased fear of falling/knee instability. Continue to focus on quad strengthening and joint stabilization. Physical Therapy Plan Frequency and Duration Frequency of Treatment 2x/Week Plan of Care Start Date 05/07/24 Plan of Care End Date 07/05/24 Therapeutic Interventions Therapeutic Interventions Balance Training,Gait Training ,Home Exercise Program,Joint Mobilizations,Manual Therapy, Neuromuscular Re-education, Patient/Caregiver Education, Self-Care/Home Management,Soft Tissue Mobilization,Taping, Therapeutic Activities, Therapeutic Exercises Modalities Cold Pack/Ice Massage,Electric Stimulation,Hot Packs, Ultrasound Next Visit Focus/Plan Next Note Type Treatment Note Next Visit Plan Quad strengthening, STM, stretching
--- NOTE | 2024-09-05 12:05 | PT.OPDS ---
Current Diagnoses Unilateral primary osteoarthritis, left knee (06/18/24) Other tear of medial meniscus, current injury, left knee, initial encounter (06/18/24) Other specified postprocedural states (06/18/24) Visit Care Team Role Provider Type Mike Linton MD Family Provider Non-Staff Primary Care Provider Specialty: Family Practice Address: [address] [place] [address], [phone] Email: Kg Merino DO Attending Provider Non-Staff Referring Provider Specialty: Orthopedic Surgery Address: [address] [place], [address] Email: Visit Number Visit Number 4 Discharge Summary PT-OP-B Current Condition Start: 05/07/24 17:40 Freq: Status: Active Protocol: Document 05/07/24 17:00 DCW (Rec: 05/08/24 09:39 DCW [id number]) Current Condition History of Current Condition Onset Date Two years Current Complaints Meniscus injury, popping in medial knee, knee locking up History of Current Pt is a 53 year old female presenting two years s/p Condition left meniscus arthroscopy. Pt notes initial injury was an insidious onset, felt good for probably two months after surgery, and then began worsening again. Pt notes that in the last six months, symptoms have progressed quite a bit, she frequently experiences her knee getting stuck, and she needs to put it in extreme flexion and add varus stress in order to unlock it. Struggles ascending stairs, feels like her lateral knee is going to snap. Over the past few months, has also begun to notice a popping of a tendon across her medial knee with extension. Prior Treatments and MRI, per patient, show meniscus and degenerative Tests changes since surgery two years ago PT-OP-C Subjective Start: 05/07/24 17:40 Freq: Status: Active Protocol: Document 06/18/24 17:00 DCW (Rec: 06/18/24 17:52 DCW [id number]) OP-PT Subjective Patient Comments Patient Comments Pt feeling better than last time, but still experiencing a lot of popping in her knee. PT-OP-F Manual Assessment Start: 05/07/24 17:40 Freq: Status: Active Protocol: Document 05/07/24 17:00 DCW (Rec: 05/07/24 17:50 DCW [id number]) Manual Assessments Soft Tissue Assessment Soft Tissue Mobility Tenderness to palpation 3/4: Wincing and withdraw along Assessment left knee joint line (anteriomedial and anteriolateral ), left pes anserine. Notable atrophy at left VMO. Snapping of left gracilis across tibial condyle very evident with left knee extension. PT-OP-G Mobility & Gait Start: 05/07/24 17:40 Freq: Status: Active Protocol: Document 05/07/24 17:00 DCW (Rec: 05/07/24 17:50 DCW [id number]) OP Gait Assessment Gait Gait Assistance Independent Required: Assistive Devices Assistive Device None Comments Gait Comments Antalgic L gait pattern with mild left toe out PT-OP-L Special Tests Start: 05/07/24 17:50 Freq: Status: Active Protocol: Document 05/07/24 17:00 DCW (Rec: 05/07/24 17:52 DCW [id number]) Special Tests Knee Special Tests Varus- 25 Degrees Test Results Negative Valgus- 25 Degrees Test Results Negative Posterior Draw Test Results Negative Patellar Grind Test Test Results Positive Left Patella Tap Test Results Positive Left Price Chondromalacia Test Results Positive Left Anterior Draw Test Results Negative PT-OP-M Strength Start: 05/07/24 17:40 Freq: Status: Active Protocol: Document 05/07/24 17:00 DCW (Rec: 05/07/24 17:50 DCW [id number]) Knee Strength Knee Manual Muscle Testing Right Flexion (S2) 4+ Good+ Extension (L3) 4+ Good+ Left Flexion (S2) 4+ Good+ Extension (L3) 4- Good- PT-OP-T Assessment and Plan Start: 05/07/24 17:40 Freq: Status: Active Protocol: Document 09/05/24 12:05 DCW (Rec: 09/05/24 12:05 DCW [id number]) Physical Therapy Assessment Assessment Summary Assessment Pt canceled remaining visits, has now not been seen in more than two months. Pt will be discharged from skilled PT at this time, will require a new referral in order to return in the future. Physical Therapy Plan Discharge Physical Therapy Discharge Reasons No Longer Attending PT
== END 2024-09-09 10:14 | disposition home or self-care (01) ==
LOC: PHYS 17:00
PROVIDERS: Family Provider Family Medicine; PCP Family Medicine; Referring Provider Orthopaedic Surgery; Visit Provider Orthopaedic Surgery
DX: Z98.890 Other specified postprocedural states (principal); S83.242A Other tear of medial meniscus, current injury, left knee, initial encounter; M17.12 Unilateral primary osteoarthritis, left knee
CPT/HCPCS: 97110; 97112; 97140; 97163